=== PATIENT | female | born 1965 | race Caucasian/White ===

== ENCOUNTER 2022-08-30 16:21 | Inpatient (IN) | payer MEDICARE, SELFPAY ==
[2022-08-30] VITALS (24 sets, daily range): BP systolic 82–138; BP diastolic 36–87; PULSE 97–113; RESP 16–28; TEMP 36.9–37.8; O2SAT 59–99; BMI 94.6; BMI 227.1
--- NOTE | 2022-08-30 16:35 | ED_ITS ---
HPI - Skin/Abscess/Foreign Bdy General Chief complaint: Skin/Abscess/Foreign Body Stated complaint: EDEMIA Time Seen by Provider: 08/30/22 16:35 Source: patient Mode of arrival: ambulance History of Present Illness HPI narrative: Patient sent to the emergency department by home health nurse with a complaint of bilateral lymphedema. Has chronic lymphedema and has been treated as an outpatient by primary care doctor with [facility] in the last month. She has an appointment tomorrow with Dr. Danielle. She had fever, chills, feels very weak today. She has nausea and denies any vomiting. She denies any abdominal pain. She states her leg swelling has worsened there is erythema there is a lot of seepage from bilateral lower extremities. Patient also has a history of chronic obstructive pulmonary disease but does not wear oxygen at home. Denies any cough, runny nose, or sore throat. She states she was admitted over a year ago for the lymphedema and cellulitis. Related Data Home Medications Medication Instructions Recorded Confirmed albuterol sulfate 2.5 mg/3 mL 2.5 mg continuous nebulization Q6H 08/30/22 08/30/22 (0.083 %) solution for nebulization PRN shortness of breath or wheezing baclofen 20 mg tablet 20 mg PO DAILY 08/30/22 08/30/22 budesonide 160 mcg-glycopyr 9 2 inh inhalation DAILY 08/30/22 08/30/22 mcg-formot 4.8 mcg/actuation HFA inhaler (Breztri Aerosphere) citalopram 40 mg tablet 40 mg PO DAILY 08/30/22 08/30/22 hydrocodone 5 mg-acetaminophen 325 1 tab PO Q6H PRN pain 08/30/22 08/30/22 mg tablet oxybutynin chloride 5 mg tablet 5 mg PO DAILY 08/30/22 08/30/22 prednisone 5 mg tablet 5 mg PO DAILY 08/30/22 08/30/22 Allergies Allergy/AdvReac Type Severity Reaction Status Date / Time Penicillins Allergy Severe Verified 08/30/22 16:26 Review of Systems ROS Status of ROS 10 or more systems reviewed and unremarkable except as noted in history and below [facility] Medical History (Updated 08/30/22 @ 19:25 by Lizeth Bruce MD) Exam Narrative Exam Narrative: Nurses notes and vital signs reviewed and patient is hypoxic.Oxygen saturations 90 percent on room air 96 percent on 2 L nasal cannula. General: Ill appearing, and in no apparent distress. Skin: See lower extremity Head: Normocephalic, atraumatic. Neck: Supple, non-tender. Eye: Pupils are equal, round and EOMI. No scleral icterus. Ears, Nose, Mouth, and Throat: TM clear, no posterior oropharynx erythema or nasal mucosal hypertrophy, uvula is mid-line Oral mucosa is dry Cardiovascular: tachycardia without murmur, gallop or rub. Respiratory: No accessory muscle use or respiratory distress. Lungs Bilateral diffuse rhonchi distant breath sounds bilaterally. Chest Wall: no tenderness Back: No midline thoracic or lumbar vertebral tenderness. No CVA tenderness Musculoskeletal: Severe bilateral lower extremity lymphedema. There are scaly plaques and diffuse erythema throughout intertriginous area. There is bullae over the gravity dependent areas with serous seepage. Cellulitis is extensive and involved the pannicular folds. GI: pathologic obesity, Abdomen is nontender,non-distended. Normal bowel sounds. No rebound, guarding, or rigidity noted. Neurological: A&O x4. No cranial nerve dysfunction observed. Psychiatric: Cooperative and interactive. Constitutional Vital Signs - 24 hr 08/30/22 16:27 08/30/22 17:15 08/30/22 16:27 Temperature 100.1 F H Pulse Rate Pulse Rate [Monitor] 108 H Respiratory Rate 26 H Blood Pressure 112/54 L Blood Pressure [Right Arm] 112/54 L Pulse Oximetry 94 L 91 L Oxygen Delivery Method Nasal Cannula Nasal Cannula Oxygen Delivery Flow Rate 2.5 2 08/30/22 16:34 08/30/22 17:01 08/30/22 17:31 Temperature Pulse Rate 103 H 107 H Pulse Rate [Monitor] Respiratory Rate 22 19 Blood Pressure 100/36 L 108/82 H 84/62 L Blood Pressure [Right Arm] Pulse Oximetry 94 L 96 Oxygen Delivery Method Oxygen Delivery Flow Rate 08/30/22 17:55 08/30/22 18:00 Temperature Pulse Rate 112 H 107 H Pulse Rate [Monitor] Respiratory Rate 20 25 H Blood Pressure 138/72 H 128/87 H Blood Pressure [Right Arm] Pulse Oximetry 68 L 96 Oxygen Delivery Method Oxygen Delivery Flow Rate Course Vital Signs Vital signs: Vital Signs Temperature 100.1 F H 08/30/22 16:27 Pulse Rate 108 H 08/30/22 16:27 Respiratory Rate 26 H 08/30/22 16:27 Blood Pressure 112/54 L 08/30/22 16:27 Pulse Oximetry 94 L 08/30/22 16:27 Oxygen Delivery Method Nasal Cannula 08/30/22 16:27 Oxygen Delivery Flow Rate 2.5 08/30/22 16:27 Temperature 100.1 F H 08/30/22 16:27 Pulse Rate 107 H 08/30/22 18:00 Respiratory Rate 25 H 08/30/22 18:00 Blood Pressure 128/87 H 08/30/22 18:00 Pulse Oximetry 96 08/30/22 18:00 Oxygen Delivery Method Nasal Cannula 08/30/22 17:15 Oxygen Delivery Flow Rate 2 08/30/22 17:15 MDM - Skin/Abscess/Foreign Bdy MDM Narrative Medical decision making narrative: Patient was placed on oxygen. She was started on 2 L normal saline, vancomycin, and Rocephin. Patient's blood pressure remained stable. She was given Tylenol for fever. All the results were discussed with patient and spouse. Patient will be admitted to Dr. Topete Differential Diagnosis Differential diagnosis: Likely abscess of skin or subcutaneous tissue and cellulitis Medical Records Attestation: I reviewed the patient's medical records. Lab Data Attestation: I reviewed the patient's lab results. Labs: Lab Results 08/30/22 08/30/22 Range/Units 17:00 17:26 WBC 16.3 H (4.0-11.0) 10^3/uL RBC 3.64 L (4.20-5.40) 10^6/uL Hgb 8.9 L (12.0-16.0) g/dL Hct 31.2 L (36.0-48.0) % MCV 85.7 (81.0-99.0) fL MCH 24.5 L (26.7-34.0) pg MCHC 28.5 L (29.9-35.2) g/dL RDW 17.2 H (11.0-15.0) % Plt Count 285 (150-450) 10^3/uL MPV 10.7 (9.5-13.5) fL Seg Neuts % (Manual) 89.0 Band Neutrophils % 5.0 (0-5) % Lymphocytes % (Manual) 3.0 L (20.5-60.0) % Monocytes % (Manual) 3.0 (1.7-12.0) % Eosinophils % (Manual) 0.0 L (0.9-7.0) % Basophils % (Manual) 0.0 L (0.2-2.0) % Neutrophils # (Manual) 14.50 H (1.4-6.5) 10^3/uL Band Neutrophils # 0.8 H (0.0-0.3) 10^3/uL Lymphocytes # (Manual) 0.48 L (1.20-3.80) 10^3/uL Monocytes # (Manual) 0.48 (0.30-0.80) 10^3/uL Eosinophils # (Manual) 0.00 (0.00-0.70) 10^3/uL Basophils # (Manual) 0.00 (0.00-0.10) 10^3/uL Hypochromasia 1+ Anisocytosis 1+ Sodium 141 (136-145) mmol/L Potassium 3.9 (3.5-5.1) mmol/L Chloride 102 (98-107) mmol/L Carbon Dioxide 34.2 H (21.0-32.0) mmol/L Anion Gap 8.7 BUN 18.0 (7.0-18.0) mg/dL Creatinine 0.78 (0.55-1.02) mg/dL Est GFR ( Amer) >60 (>=60) Est GFR (Non-Af Amer) >60 (>=60) BUN/Creatinine Ratio 23.1 Glucose 120 H (74-106) mg/dL Lactate 2.7 H* (0.4-2.0) mmol/L Calcium 8.8 (8.5-10.1) mg/dL Magnesium 2.0 (1.8-2.4) mg/dL Total Bilirubin 0.4 (0.2-1.0) mg/dL AST 31 (15-37) U/L ALT 28 (14-59) U/L Alkaline Phosphatase 118 H (46-116) U/L Total Protein 7.0 (6.4-8.2) g/dL Albumin 3.2 L (3.4-5.0) g/dL Globulin 3.8 g/dL Albumin/Globulin Ratio 0.8 Urine Color Lt. yellow (YELLOW) Urine Clarity Clear (CLEAR) Urine pH 6.0 (5.0-9.0) Ur Specific [place] 1.020 (1.005-1.025) Urine Protein Negative (NEG/TRACE) mg/dL Urine Glucose (UA) Negative (NEGATIVE) mg/dL Urine Ketones Trace A (NEGATIVE) mg/dL Urine Occult Blood Negative (NEGATIVE) Urine Nitrite Positive A (NEGATIVE) Urine Bilirubin Negative (NEGATIVE) Urine Urobilinogen 0.2 (0.2-1.0) EU/dL Ur Leukocyte Esterase Negative (NEGATIVE) ECG Data Attestation: I personally reviewed and interpreted this ECG as follows: Critical Care Time Critical Care Time Attestation: Critical Care Time: 35 minutes, critical care time is separate from any procedures that are performed. The following was considered in the determination of critical care but not limited to the level medical decision-making, intensive cardiac and/or respiratory monitor, frequent vital sign monitoring, evaluation of laboratory studies, evaluation of a radiographic studies, oxygen monitoring and constant monitoring. Discharge Plan Discharge Chief Complaint: Skin/Abscess/Foreign Body Clinical Impression: UTI (urinary tract infection), Lymphedema associated with obesity, Sepsis Patient Disposition: Admitted As Inpatient Time of Disposition Decision: 19:25 Condition: Good Prescriptions / Home Meds: No Action albuterol sulfate 2.5 mg /3 mL (0.083 %) solution for nebulization 2.5 mg continuous nebulization Q6H PRN (Reason: shortness of breath or wheezing) baclofen 20 mg tablet 20 mg PO DAILY Breztri Aerosphere 160-9-4.8 mcg/actuation HFA aerosol inhaler 2 inh INHALATION DAILY citalopram 40 mg tablet 40 mg PO DAILY hydrocodone-acetaminophen 5-325 mg tablet 1 tab PO Q6H PRN (Reason: pain) oxybutynin chloride 5 mg tablet 5 mg PO DAILY prednisone 5 mg tablet 5 mg PO DAILY Referrals: VEGA DANIELLE [Primary Care Provider] - 1 week
--- NOTE | 2022-08-30 16:37 | ECG_ITS ---
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
[2022-08-30] MEDS: 0.9 % SODIUM CHLORIDE 1,000 ML 100 ML IV (17:08)
[2022-08-30 17:12] LABS: Hematocrit 31.2 % (36.0-48.0); Hemoglobin 8.9 g/dL (12.0-16.0); Mean Corpuscular HGB Conc 28.5 g/dL (29.9-35.2); Mean Corpuscular Hemoglobin 24.5 pg (26.7-34.0); Mean Corpuscular Volume 85.7 fL (81.0-99.0); Mean Platelet Volume 10.7 fL (9.5-13.5); Platelet Count 285 10^3/uL (150-450); Red Blood Count 3.64 10^6/uL (4.20-5.40); Red Cell Distribution Width 17.2 % (11.0-15.0); White Blood Count 16.3 10^3/uL (4.0-11.0)
[2022-08-30 17:24] LABS: Alanine Aminotransferase 28 U/L (14-59); Albumin Globulin Ratio 0.8; Albumin Level 3.2 g/dL (3.4-5.0); Alkaline Phosphatase 118 U/L (46-116); Anion Gap 8.7; Aspartate Amino Transferase 31 U/L (15-37); BUN Creatinine Ratio 23.1; Bilirubin Total 0.4 mg/dL (0.2-1.0); Calcium 8.8 mg/dL (8.5-10.1); Carbon Dioxide 34.2 mmol/L (21.0-32.0); Chloride 102 mmol/L (98-107); Estimated GFR (African America >60 (>=60); Estimated GFR (Non-African Ame >60 (>=60); Globulin 3.8 g/dL; Glucose 120 mg/dL (74-106); Potassium 3.9 mmol/L (3.5-5.1); Sodium 141 mmol/L (136-145)
[2022-08-30 17:31] LABS: Band Neutrophils Absolute 0.8 10^3/uL (0.0-0.3); Lymphocytes Absolute Manual 0.48 10^3/uL (1.20-3.80); Monocytes Absolute Manual 0.48 10^3/uL (0.30-0.80)
[2022-08-30 17:32] LABS: Anisocytosis 1+; Hypochromasia 1+
[2022-08-30 17:40] LABS: Lactate/Lactic Acid 2.7 mmol/L (0.4-2.0)
[2022-08-30 17:49] LABS: Bilirubin Urine NEGATIVE (NEGATIVE); Blood Urine NEGATIVE (NEGATIVE); Clarity Urine CLEAR (CLEAR); Color Urine LT. YELLOW (YELLOW); Glucose Urine UA NEGATIVE (NEGATIVE); Ketones Urine TRACE mg/dL (NEGATIVE); Leukocyte Esterase Urine NEGATIVE (NEGATIVE); Nitrite Urine POSITIVE (NEGATIVE); Protein Urine NEGATIVE (NEG/TRACE); Urobilinogen Urine 0.2 EU/dL (0.2-1.0)
[2022-08-30] MEDS: ACETAMINOPHEN 500 MG TABLET 1000 MG PO (17:55)
[2022-08-30] MEDS: ONDANSETRON PF 4 MG/2 ML VIAL IV (17:56)
--- NOTE | 2022-08-30 18:35 | XR_ITS ---
The [place] [id number] Patient Name: HUBERT JONES MRN: [id number] date: 1965 Sex: F Assigned Patient Location: ER Current Patient Location: ED.MAIN Accession/Order Number: [id number] Exam Date: 08/30/2022 18:30 Report Date: 08/30/2022 19:33 At the request of: JUAN SANDERS Procedure: XR chest 1V EXAMINATION: XR chest 1V, , 08/30/2022 6:30 PM EDT INDICATION: sepsis HISTORY: Ordering Provider Reason for Exam: sepsis Technologist Note: Additional: COMPARISON: None. TECHNIQUE: Chest x-ray: One view. FINDINGS: No pneumothorax, pleural effusion or focal airspace consolidation. Mild prominence of bronchovascular markings is seen, which may represent mild pulmonary vascular congestion. Please correlate clinically. Heart is normal in size. Bony thorax is unremarkable. IMPRESSION: Mild prominence of bronchovascular markings is seen, which may represent mild pulmonary vascular congestion. Please correlate clinically. Electronically authenticated by: BERTA BOJORQUEZ Date: 08/30/2022 19:33
[2022-08-30] MEDS: VANCOMYCIN HCL 2,000 MG in 0.9 % SODIUM CHLORIDE 500 ML 250 MG IV (18:59)
--- NOTE | 2022-08-30 19:35 | PC.NURSE ---
PATIENT STATING HER TAILBONE AND HEAD ARE HURTING. REQUESTED SOMETHING FOR PAIN. pHYSICIAN NOTIFIED. PATIENT STATED SHE TAKES VICODIN AT HOME.
[2022-08-30 20:56] LABS: Lactate/Lactic Acid 1.3 mmol/L (0.4-2.0)
[2022-08-30] MEDS: CEFTRIAXONE 2,000 MG in 0.9 % SODIUM CHLORIDE 100 ML 200 MG IV (21:19)
[2022-08-30] MEDS: 0.9 % SODIUM CHLORIDE 1,000 ML 1000 ML IV (21:34)
[2022-08-31] VITALS (53 sets, daily range): BP systolic 89–144; BP diastolic 45–116; PULSE 77–121; RESP 12–37; TEMP 37.2–37.9; O2SAT 67–97; BMI 91.7
--- NOTE | 2022-08-31 00:07 | RESP.RT ---
patient placed on 55% Venti mask due to patient mouth breathing
--- NOTE | 2022-08-31 02:10 | PC.NURSE ---
Patient with intermittent sleep apnea while on venti mask at 55% due to mouth breathing.
--- NOTE | 2022-08-31 02:17 | PC.NURSE ---
Patient resting with mouth open and mouth breathing while wearing her oxygen at home flow rate of 2 LNC.
--- NOTE | 2022-08-31 02:27 | PC.NURSE ---
Patient continues with frequent sleep apnea. SPO2 varies frequently. Patient with Venti mask on at 55% due to open mouth breathing. Pulse ox probe on ear with variances noted. Finger probe with difficulty reading due to artificial nails and vietnamese.
--- NOTE | 2022-08-31 03:16 | P.PN_ITS ---
Progress Note: Subjective Subjective Interval history: CC: seeping wounds, fevers, chills HPI: 56 year old female with obesity, chronic lymphedema and recurrent cellulitis last episode one month ago treated with Bactrim who presents with complaints of fevers, chills rigors x 1 day. reports seeping from leg wounds. denies confusion, cough, abdominal pain. ER, febrile hypotensive resolved with fluid bolus,, labs with wbc 16, lactate 2.7, UA + nitrite. blood cultures obtained, horner placed, IV vancomycin and rocephin given. ROS: negaitve except for HPI PMHx: Super obesity, COPD on home 02, Lymphedema, chronic pain PSHx none: SHx: lives with , denies alcohol, tobacco use Allergies:NKDA Home medications: reviewed in chart Exam Narrative Exam Narrative: GEN: lying in bed in no distress, very obese appearing HEENT: NC/AT, large neck CVS: RRR, edema Lungs: normal respiratory effort, bilateral air entry GI: obese, Non tender, horner in place Skin: multiple seeping wounds both legs Neuro: moves all extremities Constitutional Vital Signs - 24 hr 08/30/22 16:27 08/30/22 17:15 08/30/22 16:27 Temperature 100.1 F H Pulse Rate Pulse Rate [Monitor] 108 H Respiratory Rate 26 H Blood Pressure 112/54 L Blood Pressure [Right Arm] 112/54 L Pulse Oximetry 94 L 91 L Oxygen Delivery Method Nasal Cannula Nasal Cannula Oxygen Delivery Flow Rate 2.5 2 Fraction of Inspired Oxygen 08/30/22 16:34 08/30/22 17:01 08/30/22 17:31 Temperature Pulse Rate 103 H 107 H Pulse Rate [Monitor] Respiratory Rate 22 19 Blood Pressure 100/36 L 108/82 H 84/62 L Blood Pressure [Right Arm] Pulse Oximetry 94 L 96 Oxygen Delivery Method Oxygen Delivery Flow Rate Fraction of Inspired Oxygen 08/30/22 17:55 08/30/22 18:00 08/30/22 22:11 Temperature 98.5 F Pulse Rate 112 H 107 H 99 H Pulse Rate [Monitor] Respiratory Rate 20 25 H 20 Blood Pressure 138/72 H 128/87 H Blood Pressure [Right Arm] 112/54 L Pulse Oximetry 68 L 96 91 L Oxygen Delivery Method Nasal Cannula Oxygen Delivery Flow Rate 2 Fraction of Inspired Oxygen 08/30/22 22:11 08/30/22 18:00 08/30/22 18:30 Temperature Pulse Rate 109 H 109 H Pulse Rate [Monitor] 99 H Respiratory Rate 20 19 27 H Blood Pressure 128/87 H 92/68 Blood Pressure [Right Arm] Pulse Oximetry 91 L 99 96 Oxygen Delivery Method Nasal Cannula Oxygen Delivery Flow Rate 2 Fraction of Inspired Oxygen 08/30/22 19:00 08/30/22 19:30 08/30/22 20:00 Temperature Pulse Rate 110 H 109 H 108 H Pulse Rate [Monitor] Respiratory Rate 20 19 16 Blood Pressure 112/59 L 94/45 L 113/47 L Blood Pressure [Right Arm] Pulse Oximetry 93 L 93 L 92 L Oxygen Delivery Method Oxygen Delivery Flow Rate Fraction of Inspired Oxygen 08/30/22 20:30 08/30/22 21:00 08/30/22 21:30 Temperature Pulse Rate 113 H 109 H Pulse Rate [Monitor] Respiratory Rate 28 H 21 Blood Pressure 91/44 L 100/48 L 82/63 L Blood Pressure [Right Arm] Pulse Oximetry 88 L 90 L Oxygen Delivery Method Oxygen Delivery Flow Rate Fraction of Inspired Oxygen 08/30/22 21:50 08/30/22 21:59 08/30/22 21:59 Temperature Pulse Rate 102 H 108 H Pulse Rate [Monitor] Respiratory Rate 19 18 Blood Pressure 91/56 L 83/50 L Blood Pressure [Right Arm] Pulse Oximetry 91 L Oxygen Delivery Method Oxygen Delivery Flow Rate Fraction of Inspired Oxygen 08/30/22 22:17 08/30/22 23:45 08/31/22 00:02 Temperature Pulse Rate 99 H Pulse Rate [Monitor] Respiratory Rate 18 Blood Pressure 112/54 L Blood Pressure [Right Arm] Pulse Oximetry 88 L 78 L 89 L Oxygen Delivery Method Nasal Cannula Venturi Mask Oxygen Delivery Flow Rate 2 14 Fraction of Inspired Oxygen 55 08/30/22 21:59 08/30/22 22:17 08/30/22 22:30 Temperature Pulse Rate 108 H 101 H 100 H Pulse Rate [Monitor] Respiratory Rate 22 22 20 Blood Pressure Blood Pressure [Right Arm] 83/50 L 112/54 L 108/49 L Pulse Oximetry 88 L 90 L 87 L Oxygen Delivery Method Nasal Cannula Nasal Cannula Nasal Cannula Oxygen Delivery Flow Rate 2 2 2 Fraction of Inspired Oxygen 08/30/22 22:45 08/30/22 23:00 08/30/22 23:15 Temperature Pulse Rate 97 H 98 H 103 H Pulse Rate [Monitor] Respiratory Rate 16 20 Blood Pressure Blood Pressure [Right Arm] 104/57 L 99/46 L 120/76 H Pulse Oximetry 85 L 88 L 86 L Oxygen Delivery Method Nasal Cannula Nasal Cannula Nasal Cannula Oxygen Delivery Flow Rate 2 2 2 Fraction of Inspired Oxygen 08/30/22 23:30 08/31/22 00:00 08/31/22 00:30 Temperature Pulse Rate 98 H 103 H 107 H Pulse Rate [Monitor] Respiratory Rate 18 18 18 Blood Pressure Blood Pressure [Right Arm] 114/63 116/65 144/80 H Pulse Oximetry 84 L 86 L 88 L Oxygen Delivery Method Nasal Cannula Venturi Mask Venturi Mask Oxygen Delivery Flow Rate 2 Fraction of Inspired Oxygen 55 55 08/31/22 01:00 08/31/22 02:00 08/30/22 22:17 Temperature Pulse Rate 110 H 114 H 100 H Pulse Rate [Monitor] Respiratory Rate 18 18 21 Blood Pressure 112/54 L Blood Pressure [Right Arm] 112/84 H 102/71 Pulse Oximetry 83 L 88 L 90 L Oxygen Delivery Method Venturi Mask Venturi Mask Oxygen Delivery Flow Rate 2 Fraction of Inspired Oxygen 55 55 08/30/22 22:30 08/30/22 22:45 08/30/22 23:00 Temperature Pulse Rate 101 H 102 H 101 H Pulse Rate [Monitor] Respiratory Rate 18 18 25 H Blood Pressure 108/49 L 104/57 L 99/46 L Blood Pressure [Right Arm] Pulse Oximetry 87 L 87 L 83 L Oxygen Delivery Method Oxygen Delivery Flow Rate Fraction of Inspired Oxygen 08/30/22 23:15 08/30/22 23:30 08/30/22 23:45 Temperature Pulse Rate 101 H 101 H 100 H Pulse Rate [Monitor] Respiratory Rate 19 20 19 Blood Pressure 120/76 H 114/63 117/73 Blood Pressure [Right Arm] Pulse Oximetry 89 L 59 L 86 L Oxygen Delivery Method Oxygen Delivery Flow Rate Fraction of Inspired Oxygen 08/31/22 00:00 08/31/22 00:15 08/31/22 00:30 Temperature Pulse Rate 106 H 107 H 107 H Pulse Rate [Monitor] Respiratory Rate 23 20 25 H Blood Pressure 116/65 122/79 H 144/116 H Blood Pressure [Right Arm] Pulse Oximetry 85 L 81 L 84 L Oxygen Delivery Method Oxygen Delivery Flow Rate Fraction of Inspired Oxygen 08/31/22 01:00 08/31/22 02:00 08/31/22 02:00 Temperature Pulse Rate 117 H 116 H 120 H Pulse Rate [Monitor] Respiratory Rate 37 H 37 H 37 H Blood Pressure 112/84 H 102/71 102/71 Blood Pressure [Right Arm] Pulse Oximetry 67 L 81 L 74 L Oxygen Delivery Method Venturi Mask Oxygen Delivery Flow Rate 55 Fraction of Inspired Oxygen 55 Progress Note: Objective Labs Labs: Short CBC 08/30/22 Range/Units 17:00 WBC 16.3 H (4.0-11.0) 10^3/uL Hgb 8.9 L (12.0-16.0) g/dL Hct 31.2 L (36.0-48.0) % Plt Count 285 (150-450) 10^3/uL BMP 08/30/22 17:00 Sodium 141 Potassium 3.9 Chloride 102 Carbon Dioxide 34.2 H BUN 18.0 Creatinine 0.78 Glucose 120 H Calcium 8.8 Liver Function 08/30/22 Range/Units 17:00 Total Bilirubin 0.4 (0.2-1.0) mg/dL AST 31 (15-37) U/L ALT 28 (14-59) U/L Alkaline Phosphatase 118 H (46-116) U/L Albumin 3.2 L (3.4-5.0) g/dL Urine 08/30/22 Range/Units 17:26 Urine Color Lt. yellow (YELLOW) Urine Clarity Clear (CLEAR) Urine pH 6.0 (5.0-9.0) Ur Specific [place] 1.020 (1.005-1.025) Urine Protein Negative (NEG/TRACE) mg/dL Urine Glucose (UA) Negative (NEGATIVE) mg/dL Progress Note: A&P Assessment and Plan (1) UTI (urinary tract infection): Assessment and Plan: Possible UTI. Start Rocephin, check urine cultures (2) Lymphedema associated with obesity: Assessment and Plan: lymphedema wraps, wound care. encourage weight loss. consider Weight loss injections (3) Sepsis: Assessment and Plan: secondary to infected wounds and cellulitis. - check blood and wound cultures - Vancomycin pharmacy to dose, + Rocephin - maintain normotension, monitor lactate levels - patient on daily low dose prednisone, if becomes hypotensive will give stress does solucortef (4) On home O2: Assessment and Plan: continue 2L home 02 suspect underlying sleep apnea, outpatient sleep study (5) Obesity: (6) Lymphedema: (7) Edema: Assessment and Plan: venous duplex legs (8) COPD (chronic obstructive pulmonary disease): Assessment and Plan: not in exacerbation, continue home inhalers. Plan telemedicine clause: DVT ppx- Lovenox, Medications review: home medication selectively ordered goals of care- [employer]: discussed with ER physician, bedside nurse and updated patient of plan of care, all questions answered to their satisfaction. disposition- home when medically stable As the provider of this telehealth evaluation, requested by the patient's evaluating physician, I attest that I introduced myself to the patient, provided my credentials and determined that telemedicine via a real time 2 way interactive audio and video platform is an appropriate and effective means of providing this service. I reviewed the patient;s chart and had a discussion with the member of the patient's treatment team. the patient and I mutually agreed with continuation of this evaluation via telemedicine. the patient consented for the telemedicine evaluation. this virtual encounter was taken place from [place] and lasted for about 30 minutes. the nurse was present during the entire time of the encounter and was able to move the stethoscope in appropriate directions. the patient was evaluated at 08/30/2022 @ 2320 Telemedicine Attestation Telemedicine Attestation I conducted this encounter from [[place]] via secure live, [id number] video conference with the patient, CHARGE TEST-CHARGES located at [facility]. Prior to the interview, the risks and benefits of telemedicine were discussed with the patient and verbal consent was obtained.
[2022-08-31 05:02] LABS: Basophils Percent Auto 0.2 % (0.2-2.0); Hematocrit 30.3 % (36.0-48.0); Hemoglobin 8.4 g/dL (12.0-16.0); Immature Granulocytes Abs Auto 0.15 10^3/uL (0.00-0.03); Immature Granulocytes Pct Auto 0.6 % (0.0-0.5); Lymphocytes Absolute Auto 0.3 10^3/uL (1.2-3.8); Lymphocytes Percent Auto 1.2 % (20.5-60.0); Mean Corpuscular HGB Conc 27.7 g/dL (29.9-35.2); Mean Corpuscular Hemoglobin 24.6 pg (26.7-34.0); Mean Corpuscular Volume 88.9 fL (81.0-99.0); Mean Platelet Volume 10.8 fL (9.5-13.5); Monocytes Absolute Auto 0.6 10^3/uL (0.3-0.8); Monocytes Percent Auto 2.6 % (1.7-12.0); Neutrophils Absolute Auto 22.7 10^3/uL (1.4-6.5); Neutrophils Percent Auto 95.4 % (43.0-75.0); Platelet Count 287 10^3/uL (150-450); Red Blood Count 3.41 10^6/uL (4.20-5.40); Red Cell Distribution Width 17.3 % (11.0-15.0); White Blood Count 23.8 10^3/uL (4.0-11.0)
[2022-08-31 05:12] LABS: Estimated Average Glucose 117 mg/dL; Glycohemoglobin A1C 5.7 % (4.5-6.2)
[2022-08-31 05:16] LABS: Lactate/Lactic Acid 0.8 mmol/L (0.4-2.0)
[2022-08-31 05:18] LABS: Alanine Aminotransferase 26 U/L (14-59); Albumin Globulin Ratio 0.7; Alkaline Phosphatase 106 U/L (46-116); Anion Gap 5.3; Aspartate Amino Transferase 24 U/L (15-37); BUN Creatinine Ratio 18.7; Bilirubin Total 0.6 mg/dL (0.2-1.0); Calcium 8.4 mg/dL (8.5-10.1); Carbon Dioxide 35.9 mmol/L (21.0-32.0); Chloride 103 mmol/L (98-107); Estimated GFR (African America >60 (>=60); Estimated GFR (Non-African Ame >60 (>=60); Globulin 4.1 g/dL; Glucose 162 mg/dL (74-106); Potassium 4.2 mmol/L (3.5-5.1); Sodium 140 mmol/L (136-145); Total Protein 7.1 g/dL (6.4-8.2)
[2022-08-31 05:24] LABS: C Reactive Protein 11.7 mg/dL (<=1.0)
[2022-08-31 05:28] LABS: Iron <5.0 ug/dL (50.0-170.0)
[2022-08-31 05:41] LABS: Percent Iron Saturation 1.1 %
[2022-08-31] MEDS: ENOXAPARIN SODIUM 60 MG/0.6 ML SYRINGE SUBQ ×2 (08:13→20:16)
[2022-08-31] MEDS: ACETAMINOPHEN 500 MG TABLET 1000 MG PO ×2 (08:15→20:16)
[2022-08-31 08:28] LABS: A. calcoaceticus-baumannii Cpx NOT DETECTED (NOT DETECTE); Bacteroides fragilis NOT DETECTED (NOT DETECTE); CTX-M NOT DETECTED (NOT DETECTE); Candida albicans NOT DETECTED (NOT DETECTE); Candida auris NOT DETECTED (NOT DETECTE); Candida glabrata NOT DETECTED (NOT DETECTE); Candida krusei NOT DETECTED (NOT DETECTE); Candida parapsilosis NOT DETECTED (NOT DETECTE); Candida tropicalis NOT DETECTED (NOT DETECTE); Cryptococcus neoformans/gattii NOT DETECTED (NOT DETECTE); Enterobacter cloacae complex NOT DETECTED (NOT DETECTE); Enterobacterales NOT DETECTED (NOT DETECTE); Enterococcus faecalis NOT DETECTED (NOT DETECTE); Enterococcus faecium NOT DETECTED (NOT DETECTE); Haemophilus influenzae NOT DETECTED (NOT DETECTE); IMP NOT DETECTED (NOT DETECTE); KPC NOT DETECTED (NOT DETECTE); Klebsiella aerogenes NOT DETECTED (NOT DETECTE); Klebsiella pneumoniae group NOT DETECTED (NOT DETECTE); Listeria monocytogenes NOT DETECTED (NOT DETECTE); NDM NOT DETECTED (NOT DETECTE); Neisseria meningitidis NOT DETECTED (NOT DETECTE); OXA-48-like NOT DETECTED (NOT DETECTE); Proteus spp. NOT DETECTED (NOT DETECTE); Pseudomonas aeruginosa NOT DETECTED (NOT DETECTE); Salmonella spp. NOT DETECTED (NOT DETECTE); Serratia marcescens NOT DETECTED (NOT DETECTE); Staphylococcus epidermidis NOT DETECTED (NOT DETECTE); Staphylococcus lugdunensis NOT DETECTED (NOT DETECTE); Staphylococcus spp. NOT DETECTED (NOT DETECTE); Stenotrophomonas maltophilia NOT DETECTED (NOT DETECTE); Streptococcus pneumoniae NOT DETECTED (NOT DETECTE); Streptococcus pyogenes NOT DETECTED (NOT DETECTE); VIM NOT DETECTED (NOT DETECTE); mcr-1 NOT DETECTED (NOT DETECTE); mecA/C NOT DETECTED (NOT DETECTE); mecA/C and MREJ (MRSA) NOT DETECTED (NOT DETECTE); vanA/B NOT DETECTED (NOT DETECTE)
[2022-08-31] MEDS: VANCOMYCIN HCL 2,000 MG in 0.9 % SODIUM CHLORIDE 500 ML 250 MG IV (08:28)
[2022-08-31 08:32] LABS: Streptococcus agalactiae DETECTED (NOT DETECTE); Streptococcus spp. DETECTED (NOT DETECTE)
--- NOTE | 2022-08-31 10:33 | RESP.RT ---
SpO2 81% on 55% VM due to obstructive sleep apnea. SpO2 immediately perla to 96% after placing on BiPAP 18/5, RR 14, 50%
[2022-08-31] MEDS: OXYBUTYNIN chloride 5 MG TABLET PO (10:43)
[2022-08-31] MEDS: CITALOPRAM HYDROBROMIDE 20 MG TABLET 40 MG PO (10:43)
[2022-08-31] MEDS: PREDNISONE 5 MG TABLET PO (10:43)
[2022-08-31] MEDS: LINEZOLID IN DEXTROSE 5% 600 MG/300 ML PIGGYBACK 300 MG IV (10:43)
[2022-08-31] MEDS: BACLOFEN 10 MG TABLET 20 MG PO (10:43)
[2022-08-31 10:55] LABS: Glucometer 139 mg/dL (74-106)
--- NOTE | 2022-08-31 11:06 | CA_ITS ---
Patient Name Site Name HUBERT JONES [facility] Account No Medical Record Number Age Sex Date Time [id number] [facility]:[id number] F 08/31/2022 12:03 At the Request Of Shaikh Amna ECHOCARDIOGRAM REPORT PROCEDURE: CA ECHO DOPPLER COMPLETE INDICATIONS: sob, chf, elevated BNP COMPARISON: None. DESCRIPTION: COMPLETE ECHOCARDIOGRAM Real-time transthoracic echocardiography with 2D, M-mode, spectral and color flow Doppler performed. QUALITY: Technically difficult due to patient's condition. 64 533# No apical or subcostal images. LEFT VENTRICLE: Normal chamber size. Mild concentric left ventricular hypertrophy. LV EF: Visual estimation of left ventricular ejection fraction is 50-55% DIASTOLIC: ATRIAL SEPTUM: LEFT ATRIUM: Normal chamber size. RIGHT ATRIUM: RIGHT VENTRICLE: Normal chamber size. Normal systolic function. TRICUSPID VALVE: Not well visualized. MITRAL VALVE: Normal mobility and thickness. There is no mitral annular calcification. AORTIC VALVE: Normal trileaflet appearance. No visible sclerosis. Normal leaflet mobility. AORTIC ROOT: PULMONIC VALVE: Not well visualized. PERICARDIUM: No evidence of pericardial effusion. IVC: Not well visualized. PLEURA: CONCLUSION: 1. Left ventricular systolic function is at the lower limits of normal. LVEF is estimated at 50 to 55%. 2. Normal right ventricular systolic function. 3. The aortic valve appears to open well. 4. No pericardial effusion. 5. Technically limited study due to poor sound transmission. This precluded full assessment of valvular function. Adult Echocardiography Procedure Report Left Ventricle LVEDD (3.7 - 5.6 cm): 5.40 cm LVESD (2.2 - 4.0 cm): 4.32 cm LVIVS thickness (0.6 - 1.2 cm): 1.09 cm LVPW thickness (0.5 - 1.0 cm): 1.08 cm LVOT Diameter 2.41 cm Left Atrium Left Atrium Systolic Dimension: 3.84 cm Mitral Valve Right Ventricle Aorta AO Root Diam: 3.21 cm Aortic Valve Tricuspid Valve Pulmonic Valve Peak Velocity: 0.99 m/s Peak Gradient: 3.81 mm[Hg], 4.10 mm[Hg] Right Atrium Dictated by: Barry Harvey M.D. on 09/01/2022 at 18:15 Approved by: Barry Harvey M.D. on 09/01/2022 at 18:18
[2022-08-31] MEDS: LACTATED RINGER'S SOLUTION 1,000 ML 125 ML IV ×2 (11:26→20:15)
[2022-08-31] MEDS: CEFTRIAXONE 2,000 MG in 0.9 % SODIUM CHLORIDE 100 ML 200 MG IV (11:28)
--- NOTE | 2022-08-31 11:58 | CM.NOTE ---
Rounds made with Dr. Woo. Currently has home oxygen @ 2L/NC and CPap. Has a hospital bed and bedside commode at home also. Current with Home Health. Consult for Wound. No discharge today.
[2022-08-31] MEDS: HYDROCODONE/ACETAMINOPHEN 5-325 MG TABLET 1 TAB PO (12:39)
--- NOTE | 2022-08-31 12:59 | P.GSCN_ITS ---
History of Present Illness Consult details Narrative: Patient is a 56-year-old female who is seen today in consultation for reported cellulitis of both lower extremities. Patient is a morbidly obese female who is admitted with sepsis. Upon evaluation she was noted to have markedly lymphedema with areas of erythema of both thighs as well as lower legs. Reportedly she has areas were her tissue is essentially weeping fluid. Surgical/wound consultation was therefore requested. Review of Systems ROS Status of ROS unobtainable due to medical condition [facility] Medical History (Updated 08/30/22 @ 19:25 by Lizeth Bruce MD) Social History (Updated 08/30/22 @ 23:44 by José Miguel Saxena) Within the past year, how often did you have a drink containing alcohol: never Score interpretation: A score less than 3 is consistent with normal alcohol consumption. Smoking status: Never smoker Second hand tobacco smoke exposure: No Non-prescribed substance use: denies use Known occupational exposures/hazards: No Are you now , , , , never or living with a partner: In a typical week, how many times do you talk on the telephone with family, friends, or neighbors: 3 or more times per week How often do you get together with friends or relatives: 3 or more times per week How often do you attend buddhism or scientology services: never Do you belong to any clubs or organizations such as buddhism groups unions, fraternal or athletic groups, or school groups: no Total score: 2 Score interpretation: A score of greater than or equal to 2 indicates the lowest level of social isolation. Little interest or pleasure in doing things: not at all Feeling down, depressed, or hopeless: several days Feel stressed/tense/nervous/anxious/difficulty sleeping: to some extent Due to disability, difficulty making decisions: No Gender Identity: female Meds Home Medications and Allergies Home Medications Medication Instructions Recorded Confirmed Type albuterol sulfate 2.5 mg/3 mL 2.5 mg continuous nebulization Q6H 08/30/22 08/30/22 History (0.083 %) solution for nebulization PRN shortness of breath or wheezing baclofen 20 mg tablet 20 mg PO DAILY 08/30/22 08/30/22 History budesonide 160 mcg-glycopyr 9 2 inh inhalation DAILY 08/30/22 08/30/22 History mcg-formot 4.8 mcg/actuation HFA inhaler ([employer]) citalopram 40 mg tablet 40 mg PO DAILY 08/30/22 08/30/22 History hydrocodone 5 mg-acetaminophen 325 1 tab PO Q6H PRN pain 08/30/22 08/30/22 History mg tablet oxybutynin chloride 5 mg tablet 5 mg PO DAILY 08/30/22 08/30/22 History prednisone 5 mg tablet 5 mg PO DAILY 08/30/22 08/30/22 History Allergies Allergy/AdvReac Type Severity Reaction Status Date / Time Penicillins Allergy Severe Verified 08/30/22 16:26 Exam Narrative Exam Narrative: Patient is seen in ICU. Via CPAP. On examination of her lower extremities again there is marked lymphedema with chronic skin and soft tissue changes. The left medial thigh there is an area which is open although it is quite superficial and appears clean. Constitutional Vital Signs - 24 hr 08/30/22 16:27 08/30/22 17:15 08/30/22 16:27 Temperature 100.1 F H Pulse Rate Pulse Rate [Monitor] 108 H Respiratory Rate 26 H Blood Pressure 112/54 L Blood Pressure [Left Arm] Blood Pressure [Right Arm] 112/54 L Pulse Oximetry 94 L 91 L Oxygen Delivery Method Nasal Cannula Nasal Cannula Oxygen Delivery Flow Rate 2.5 2 Fraction of Inspired Oxygen 08/30/22 16:34 08/30/22 17:01 08/30/22 17:31 Temperature Pulse Rate 103 H 107 H Pulse Rate [Monitor] Respiratory Rate 22 19 Blood Pressure 100/36 L 108/82 H 84/62 L Blood Pressure [Left Arm] Blood Pressure [Right Arm] Pulse Oximetry 94 L 96 Oxygen Delivery Method Oxygen Delivery Flow Rate Fraction of Inspired Oxygen 08/30/22 17:55 08/30/22 18:00 08/30/22 22:11 Temperature 98.5 F Pulse Rate 112 H 107 H 99 H Pulse Rate [Monitor] Respiratory Rate 20 25 H 20 Blood Pressure 138/72 H 128/87 H Blood Pressure [Left Arm] Blood Pressure [Right Arm] 112/54 L Pulse Oximetry 68 L 96 91 L Oxygen Delivery Method Nasal Cannula Oxygen Delivery Flow Rate 2 Fraction of Inspired Oxygen 08/30/22 22:11 08/30/22 18:00 08/30/22 18:30 Temperature Pulse Rate 109 H 109 H Pulse Rate [Monitor] 99 H Respiratory Rate 20 19 27 H Blood Pressure 128/87 H 92/68 Blood Pressure [Left Arm] Blood Pressure [Right Arm] Pulse Oximetry 91 L 99 96 Oxygen Delivery Method Nasal Cannula Oxygen Delivery Flow Rate 2 Fraction of Inspired Oxygen 08/30/22 19:00 08/30/22 19:30 08/30/22 20:00 Temperature Pulse Rate 110 H 109 H 108 H Pulse Rate [Monitor] Respiratory Rate 20 19 16 Blood Pressure 112/59 L 94/45 L 113/47 L Blood Pressure [Left Arm] Blood Pressure [Right Arm] Pulse Oximetry 93 L 93 L 92 L Oxygen Delivery Method Oxygen Delivery Flow Rate Fraction of Inspired Oxygen 08/30/22 20:30 08/30/22 21:00 08/30/22 21:30 Temperature Pulse Rate 113 H 109 H Pulse Rate [Monitor] Respiratory Rate 28 H 21 Blood Pressure 91/44 L 100/48 L 82/63 L Blood Pressure [Left Arm] Blood Pressure [Right Arm] Pulse Oximetry 88 L 90 L Oxygen Delivery Method Oxygen Delivery Flow Rate Fraction of Inspired Oxygen 08/30/22 21:50 08/30/22 21:59 08/30/22 21:59 Temperature Pulse Rate 102 H 108 H Pulse Rate [Monitor] Respiratory Rate 19 18 Blood Pressure 91/56 L 83/50 L Blood Pressure [Left Arm] Blood Pressure [Right Arm] Pulse Oximetry 91 L Oxygen Delivery Method Oxygen Delivery Flow Rate Fraction of Inspired Oxygen 08/30/22 22:17 08/30/22 23:45 08/31/22 00:02 Temperature Pulse Rate 99 H Pulse Rate [Monitor] Respiratory Rate 18 Blood Pressure 112/54 L Blood Pressure [Left Arm] Blood Pressure [Right Arm] Pulse Oximetry 88 L 78 L 89 L Oxygen Delivery Method Nasal Cannula Venturi Mask Oxygen Delivery Flow Rate 2 14 Fraction of Inspired Oxygen 55 08/30/22 21:59 08/30/22 22:17 08/30/22 22:30 Temperature Pulse Rate 108 H 101 H 100 H Pulse Rate [Monitor] Respiratory Rate 22 22 20 Blood Pressure Blood Pressure [Left Arm] Blood Pressure [Right Arm] 83/50 L 112/54 L 108/49 L Pulse Oximetry 88 L 90 L 87 L Oxygen Delivery Method Nasal Cannula Nasal Cannula Nasal Cannula Oxygen Delivery Flow Rate 2 2 2 Fraction of Inspired Oxygen 08/30/22 22:45 08/30/22 23:00 08/30/22 23:15 Temperature Pulse Rate 97 H 98 H 103 H Pulse Rate [Monitor] Respiratory Rate 16 20 Blood Pressure Blood Pressure [Left Arm] Blood Pressure [Right Arm] 104/57 L 99/46 L 120/76 H Pulse Oximetry 85 L 88 L 86 L Oxygen Delivery Method Nasal Cannula Nasal Cannula Nasal Cannula Oxygen Delivery Flow Rate 2 2 2 Fraction of Inspired Oxygen 08/30/22 23:30 08/31/22 00:00 08/31/22 00:30 Temperature Pulse Rate 98 H 103 H 107 H Pulse Rate [Monitor] Respiratory Rate 18 18 18 Blood Pressure Blood Pressure [Left Arm] Blood Pressure [Right Arm] 114/63 116/65 144/80 H Pulse Oximetry 84 L 86 L 88 L Oxygen Delivery Method Nasal Cannula Venturi Mask Venturi Mask Oxygen Delivery Flow Rate 2 Fraction of Inspired Oxygen 55 55 08/31/22 01:00 08/31/22 02:00 08/30/22 22:17 Temperature Pulse Rate 110 H 114 H 100 H Pulse Rate [Monitor] Respiratory Rate 18 18 21 Blood Pressure 112/54 L Blood Pressure [Left Arm] Blood Pressure [Right Arm] 112/84 H 102/71 Pulse Oximetry 83 L 88 L 90 L Oxygen Delivery Method Venturi Mask Venturi Mask Oxygen Delivery Flow Rate 2 Fraction of Inspired Oxygen 55 55 08/30/22 22:30 08/30/22 22:45 08/30/22 23:00 Temperature Pulse Rate 101 H 102 H 101 H Pulse Rate [Monitor] Respiratory Rate 18 18 25 H Blood Pressure 108/49 L 104/57 L 99/46 L Blood Pressure [Left Arm] Blood Pressure [Right Arm] Pulse Oximetry 87 L 87 L 83 L Oxygen Delivery Method Oxygen Delivery Flow Rate Fraction of Inspired Oxygen 08/30/22 23:15 08/30/22 23:30 08/30/22 23:45 Temperature Pulse Rate 101 H 101 H 100 H Pulse Rate [Monitor] Respiratory Rate 19 20 19 Blood Pressure 120/76 H 114/63 117/73 Blood Pressure [Left Arm] Blood Pressure [Right Arm] Pulse Oximetry 89 L 59 L 86 L Oxygen Delivery Method Oxygen Delivery Flow Rate Fraction of Inspired Oxygen 08/31/22 00:00 08/31/22 00:15 08/31/22 00:30 Temperature Pulse Rate 106 H 107 H 107 H Pulse Rate [Monitor] Respiratory Rate 23 20 25 H Blood Pressure 116/65 122/79 H 144/116 H Blood Pressure [Left Arm] Blood Pressure [Right Arm] Pulse Oximetry 85 L 81 L 84 L Oxygen Delivery Method Oxygen Delivery Flow Rate Fraction of Inspired Oxygen 08/31/22 01:00 08/31/22 02:00 08/31/22 02:00 Temperature Pulse Rate 117 H 116 H 120 H Pulse Rate [Monitor] Respiratory Rate 37 H 37 H 37 H Blood Pressure 112/84 H 102/71 102/71 Blood Pressure [Left Arm] Blood Pressure [Right Arm] Pulse Oximetry 67 L 81 L 74 L Oxygen Delivery Method Venturi Mask Oxygen Delivery Flow Rate 55 Fraction of Inspired Oxygen 55 08/31/22 02:00 08/31/22 03:00 08/31/22 04:00 Temperature Pulse Rate 121 H 115 H 114 H Pulse Rate [Monitor] Respiratory Rate 19 23 18 Blood Pressure 102/71 126/81 H 124/75 H Blood Pressure [Left Arm] Blood Pressure [Right Arm] Pulse Oximetry 83 L 83 L 85 L Oxygen Delivery Method Oxygen Delivery Flow Rate Fraction of Inspired Oxygen 08/31/22 06:05 08/31/22 09:36 08/31/22 04:00 Temperature Pulse Rate 105 H 97 H 111 H Pulse Rate [Monitor] Respiratory Rate 26 H 17 Blood Pressure 124/75 H Blood Pressure [Left Arm] 112/64 Blood Pressure [Right Arm] Pulse Oximetry 88 L 86 L Oxygen Delivery Method Venturi Mask Oxygen Delivery Flow Rate 14 Fraction of Inspired Oxygen 55 08/31/22 05:00 08/31/22 06:00 08/31/22 06:06 Temperature Pulse Rate 107 H 108 H 106 H Pulse Rate [Monitor] Respiratory Rate 30 H 27 H 20 Blood Pressure 96/61 127/68 H 112/64 Blood Pressure [Left Arm] Blood Pressure [Right Arm] Pulse Oximetry 88 L 88 L 86 L Oxygen Delivery Method Oxygen Delivery Flow Rate Fraction of Inspired Oxygen 08/31/22 07:00 08/31/22 08:00 08/31/22 09:00 Temperature Pulse Rate 102 H 99 H 104 H Pulse Rate [Monitor] Respiratory Rate 19 18 21 Blood Pressure 118/59 L 118/45 L 89/56 L Blood Pressure [Left Arm] Blood Pressure [Right Arm] Pulse Oximetry 92 L 81 L 91 L Oxygen Delivery Method Oxygen Delivery Flow Rate Fraction of Inspired Oxygen 08/31/22 09:12 08/31/22 09:12 08/31/22 09:12 Temperature Pulse Rate 93 H 93 H 92 H Pulse Rate [Monitor] Respiratory Rate 17 18 17 Blood Pressure 102/52 L 102/52 L 102/52 L Blood Pressure [Left Arm] Blood Pressure [Right Arm] Pulse Oximetry 84 L 86 L 84 L Oxygen Delivery Method Oxygen Delivery Flow Rate Fraction of Inspired Oxygen 08/31/22 10:30 08/31/22 09:12 08/31/22 10:00 Temperature Pulse Rate 93 H 99 H 83 Pulse Rate [Monitor] Respiratory Rate 18 16 Blood Pressure 102/52 L 106/51 L Blood Pressure [Left Arm] Blood Pressure [Right Arm] Pulse Oximetry 96 81 L 91 L Oxygen Delivery Method Oxygen Delivery Flow Rate Fraction of Inspired Oxygen 50 08/31/22 11:00 08/31/22 11:28 08/31/22 11:00 Temperature 100.3 F H Pulse Rate 85 84 Pulse Rate [Monitor] Respiratory Rate 17 17 Blood Pressure 99/47 L 99/47 L Blood Pressure [Left Arm] Blood Pressure [Right Arm] Pulse Oximetry 94 L 93 L Oxygen Delivery Method Oxygen Delivery Flow Rate Fraction of Inspired Oxygen Results Labs Labs: Abnormal lab results 08/30/22 08/30/22 08/31/22 Range/Units 17:00 17:26 04:12 WBC 16.3 H 23.8 H (4.0-11.0) 10^3/uL RBC 3.64 L 3.41 L (4.20-5.40) 10^6/uL Hgb 8.9 L 8.4 L (12.0-16.0) g/dL Hct 31.2 L 30.3 L (36.0-48.0) % MCH 24.5 L 24.6 L (26.7-34.0) pg MCHC 28.5 L 27.7 L (29.9-35.2) g/dL RDW 17.2 H 17.3 H (11.0-15.0) % Neut % (Auto) 95.4 H (43.0-75.0) % Lymph % (Auto) 1.2 L (20.5-60.0) % Eos % (Auto) 0.0 L (0.9-7.0) % Neut # (Auto) 22.7 H (1.4-6.5) 10^3/uL Lymph # (Auto) 0.3 L (1.2-3.8) 10^3/uL Abs Immat Gran (auto) 0.15 H (0.00-0.03) 10^3/uL Lymphocytes % (Manual) 3.0 L (20.5-60.0) % Eosinophils % (Manual) 0.0 L (0.9-7.0) % Basophils % (Manual) 0.0 L (0.2-2.0) % Imm/Tot Granulo (auto) 0.6 H (0.0-0.5) % Neutrophils # (Manual) 14.50 H (1.4-6.5) 10^3/uL Band Neutrophils # 0.8 H (0.0-0.3) 10^3/uL Lymphocytes # (Manual) 0.48 L (1.20-3.80) 10^3/uL Carbon Dioxide 34.2 H 35.9 H (21.0-32.0) mmol/L Glucose 120 H 162 H (74-106) mg/dL Lactate 2.7 H* (0.4-2.0) mmol/L Calcium 8.4 L (8.5-10.1) mg/dL Iron <5.0 L (50.0-170.0) ug/dL Alkaline Phosphatase 118 H (46-116) U/L C-Reactive Protein 11.7 H (<=1.0) mg/dL NT-Pro-B Natriuret Pep 2473.0 H* (<=900.0) pg/mL Albumin 3.2 L 3.0 L (3.4-5.0) g/dL Urine Ketones Trace A (NEGATIVE) mg/dL Urine Nitrite Positive A (NEGATIVE) Streptococcus sp PCR Detected A* (NOT DETECTE) Strep agalactiae (PCR) Detected A* (NOT DETECTE) POC Glucose (74-106) mg/dL 08/31/22 Range/Units 10:53 WBC (4.0-11.0) 10^3/uL RBC (4.20-5.40) 10^6/uL Hgb (12.0-16.0) g/dL Hct (36.0-48.0) % MCH (26.7-34.0) pg MCHC (29.9-35.2) g/dL RDW (11.0-15.0) % Neut % (Auto) (43.0-75.0) % Lymph % (Auto) (20.5-60.0) % Eos % (Auto) (0.9-7.0) % Neut # (Auto) (1.4-6.5) 10^3/uL Lymph # (Auto) (1.2-3.8) 10^3/uL Abs Immat Gran (auto) (0.00-0.03) 10^3/uL Lymphocytes % (Manual) (20.5-60.0) % Eosinophils % (Manual) (0.9-7.0) % Basophils % (Manual) (0.2-2.0) % Imm/Tot Granulo (auto) (0.0-0.5) % Neutrophils # (Manual) (1.4-6.5) 10^3/uL Band Neutrophils # (0.0-0.3) 10^3/uL Lymphocytes # (Manual) (1.20-3.80) 10^3/uL Carbon Dioxide (21.0-32.0) mmol/L Glucose (74-106) mg/dL Lactate (0.4-2.0) mmol/L Calcium (8.5-10.1) mg/dL Iron (50.0-170.0) ug/dL Alkaline Phosphatase (46-116) U/L C-Reactive Protein (<=1.0) mg/dL NT-Pro-B Natriuret Pep (<=900.0) pg/mL Albumin (3.4-5.0) g/dL Urine Ketones (NEGATIVE) mg/dL Urine Nitrite (NEGATIVE) Streptococcus sp PCR (NOT DETECTE) Strep agalactiae (PCR) (NOT DETECTE) POC Glucose 139 H (74-106) mg/dL Diabetes panel 08/30/22 08/31/22 Range/Units 17:00 04:12 Sodium 141 140 (136-145) mmol/L Potassium 3.9 4.2 (3.5-5.1) mmol/L Chloride 102 103 (98-107) mmol/L Carbon Dioxide 34.2 H 35.9 H (21.0-32.0) mmol/L BUN 18.0 17.0 (7.0-18.0) mg/dL Creatinine 0.78 0.91 (0.55-1.02) mg/dL Glucose 120 H 162 H (74-106) mg/dL Hemoglobin A1c 5.7 (4.5-6.2) % Calcium 8.8 8.4 L (8.5-10.1) mg/dL AST 31 24 (15-37) U/L ALT 28 26 (14-59) U/L Alkaline Phosphatase 118 H 106 (46-116) U/L Total Protein 7.0 7.1 (6.4-8.2) g/dL Albumin 3.2 L 3.0 L (3.4-5.0) g/dL Calcium panel 08/30/22 08/31/22 Range/Units 17:00 04:12 Calcium 8.8 8.4 L (8.5-10.1) mg/dL Albumin 3.2 L 3.0 L (3.4-5.0) g/dL Pituitary panel 08/30/22 08/31/22 Range/Units 17:00 04:12 Sodium 141 140 (136-145) mmol/L Potassium 3.9 4.2 (3.5-5.1) mmol/L Chloride 102 103 (98-107) mmol/L Carbon Dioxide 34.2 H 35.9 H (21.0-32.0) mmol/L BUN 18.0 17.0 (7.0-18.0) mg/dL Creatinine 0.78 0.91 (0.55-1.02) mg/dL Glucose 120 H 162 H (74-106) mg/dL Calcium 8.8 8.4 L (8.5-10.1) mg/dL Adrenal panel 08/30/22 08/31/22 Range/Units 17:00 04:12 Sodium 141 140 (136-145) mmol/L Potassium 3.9 4.2 (3.5-5.1) mmol/L Chloride 102 103 (98-107) mmol/L Carbon Dioxide 34.2 H 35.9 H (21.0-32.0) mmol/L BUN 18.0 17.0 (7.0-18.0) mg/dL Creatinine 0.78 0.91 (0.55-1.02) mg/dL Glucose 120 H 162 H (74-106) mg/dL Calcium 8.8 8.4 L (8.5-10.1) mg/dL Total Bilirubin 0.4 0.6 (0.2-1.0) mg/dL AST 31 24 (15-37) U/L ALT 28 26 (14-59) U/L Alkaline Phosphatase 118 H 106 (46-116) U/L Total Protein 7.0 7.1 (6.4-8.2) g/dL Albumin 3.2 L 3.0 L (3.4-5.0) g/dL All other labs normal. Assessment and Plan Assessment and Plan (1) UTI (urinary tract infection): (2) Lymphedema associated with obesity: Assessment and Plan: Assessment - chronic lower extremity lymphedema and associated cellulitis Plan - agree with continuation of IV antibiotics, will and to apply absorbent dressing to the site of her left leg, no surgical process is apparent. (3) Sepsis: (4) On home O2: (5) Obesity: (6) Lymphedema: (7) Edema: (8) COPD (chronic obstructive pulmonary disease):
--- NOTE | 2022-08-31 13:11 | P.HP_ITS ---
H&P: HPI History of Present Illness Chief complaint: sepsis Narrative: 56 y o morbidly obese with chronic lymphedema was brought in for fever, confusion, low blood pressure and worsening seepage,drainage and erythema from her b/l LE for which she was treated with bactrim recently. In ED, her w/u was c/w sepsis sec to cellulitis, requiring aggressive IV hydration for hypotension. This morning on evaluation, she is still lethargic and drowsy. I was not able to carry on a meaningful conversation with her. She is still febrile. Blood pressure is now stable after fluid resuscitation. She uses O2 at home and BIPAP for VAHE and was hypoxic on home O2 and was switched to BIPAP with improvement in her Oxygenation. Denies cough, wheezing. Review of Systems ROS Narrative Limited due to patients clinical condition [facility] Medical History (Updated 08/31/22 @ 17:24 by Shaikh Amna MD) Social History Within the past year, how often did you have a drink containing alcohol: never Score interpretation: A score less than 3 is consistent with normal alcohol consumption. Smoking status: Never smoker Second hand tobacco smoke exposure: No Non-prescribed substance use: denies use Known occupational exposures/hazards: No Are you now , , , , never or living with a partner: In a typical week, how many times do you talk on the telephone with family, friends, or neighbors: 3 or more times per week How often do you get together with friends or relatives: 3 or more times per week How often do you attend adventism or lutheran services: never Do you belong to any clubs or organizations such as adventism groups unions, fraternal or athletic groups, or school groups: no Total score: 2 Score interpretation: A score of greater than or equal to 2 indicates the lowest level of social isolation. Little interest or pleasure in doing things: not at all Feeling down, depressed, or hopeless: several days Feel stressed/tense/nervous/anxious/difficulty sleeping: to some extent Due to disability, difficulty making decisions: No Gender Identity: female Meds Home Medications and Allergies Home Medications Medication Instructions Recorded Confirmed Type albuterol sulfate 2.5 mg/3 mL 2.5 mg continuous nebulization Q6H 08/30/22 08/30/22 History (0.083 %) solution for nebulization PRN shortness of breath or wheezing baclofen 20 mg tablet 20 mg PO DAILY 08/30/22 08/30/22 History budesonide 160 mcg-glycopyr 9 2 inh inhalation DAILY 08/30/22 08/30/22 History mcg-formot 4.8 mcg/actuation HFA inhaler ([facility]) citalopram 40 mg tablet 40 mg PO DAILY 08/30/22 08/30/22 History hydrocodone 5 mg-acetaminophen 325 1 tab PO Q6H PRN pain 08/30/22 08/30/22 History mg tablet oxybutynin chloride 5 mg tablet 5 mg PO DAILY 08/30/22 08/30/22 History prednisone 5 mg tablet 5 mg PO DAILY 08/30/22 08/30/22 History Allergies Allergy/AdvReac Type Severity Reaction Status Date / Time Penicillins Allergy Severe Verified 08/30/22 16:26 Exam Constitutional Vital Signs - 24 hr 08/30/22 16:27 08/30/22 17:15 08/30/22 16:27 Temperature 100.1 F H Pulse Rate Pulse Rate [Monitor] 108 H Respiratory Rate 26 H Blood Pressure 112/54 L Blood Pressure [Left Arm] Blood Pressure [Right Arm] 112/54 L Pulse Oximetry 94 L 91 L Oxygen Delivery Method Nasal Cannula Nasal Cannula Oxygen Delivery Flow Rate 2.5 2 Fraction of Inspired Oxygen 08/30/22 16:34 08/30/22 17:01 08/30/22 17:31 Temperature Pulse Rate 103 H 107 H Pulse Rate [Monitor] Respiratory Rate 22 19 Blood Pressure 100/36 L 108/82 H 84/62 L Blood Pressure [Left Arm] Blood Pressure [Right Arm] Pulse Oximetry 94 L 96 Oxygen Delivery Method Oxygen Delivery Flow Rate Fraction of Inspired Oxygen 08/30/22 17:55 08/30/22 18:00 08/30/22 22:11 Temperature 98.5 F Pulse Rate 112 H 107 H 99 H Pulse Rate [Monitor] Respiratory Rate 20 25 H 20 Blood Pressure 138/72 H 128/87 H Blood Pressure [Left Arm] Blood Pressure [Right Arm] 112/54 L Pulse Oximetry 68 L 96 91 L Oxygen Delivery Method Nasal Cannula Oxygen Delivery Flow Rate 2 Fraction of Inspired Oxygen 08/30/22 22:11 08/30/22 18:00 08/30/22 18:30 Temperature Pulse Rate 109 H 109 H Pulse Rate [Monitor] 99 H Respiratory Rate 20 19 27 H Blood Pressure 128/87 H 92/68 Blood Pressure [Left Arm] Blood Pressure [Right Arm] Pulse Oximetry 91 L 99 96 Oxygen Delivery Method Nasal Cannula Oxygen Delivery Flow Rate 2 Fraction of Inspired Oxygen 08/30/22 19:00 08/30/22 19:30 08/30/22 20:00 Temperature Pulse Rate 110 H 109 H 108 H Pulse Rate [Monitor] Respiratory Rate 20 19 16 Blood Pressure 112/59 L 94/45 L 113/47 L Blood Pressure [Left Arm] Blood Pressure [Right Arm] Pulse Oximetry 93 L 93 L 92 L Oxygen Delivery Method Oxygen Delivery Flow Rate Fraction of Inspired Oxygen 08/30/22 20:30 08/30/22 21:00 08/30/22 21:30 Temperature Pulse Rate 113 H 109 H Pulse Rate [Monitor] Respiratory Rate 28 H 21 Blood Pressure 91/44 L 100/48 L 82/63 L Blood Pressure [Left Arm] Blood Pressure [Right Arm] Pulse Oximetry 88 L 90 L Oxygen Delivery Method Oxygen Delivery Flow Rate Fraction of Inspired Oxygen 08/30/22 21:50 08/30/22 21:59 08/30/22 21:59 Temperature Pulse Rate 102 H 108 H Pulse Rate [Monitor] Respiratory Rate 19 18 Blood Pressure 91/56 L 83/50 L Blood Pressure [Left Arm] Blood Pressure [Right Arm] Pulse Oximetry 91 L Oxygen Delivery Method Oxygen Delivery Flow Rate Fraction of Inspired Oxygen 08/30/22 22:17 08/30/22 23:45 08/31/22 00:02 Temperature Pulse Rate 99 H Pulse Rate [Monitor] Respiratory Rate 18 Blood Pressure 112/54 L Blood Pressure [Left Arm] Blood Pressure [Right Arm] Pulse Oximetry 88 L 78 L 89 L Oxygen Delivery Method Nasal Cannula Venturi Mask Oxygen Delivery Flow Rate 2 14 Fraction of Inspired Oxygen 55 08/30/22 21:59 08/30/22 22:17 08/30/22 22:30 Temperature Pulse Rate 108 H 101 H 100 H Pulse Rate [Monitor] Respiratory Rate 22 22 20 Blood Pressure Blood Pressure [Left Arm] Blood Pressure [Right Arm] 83/50 L 112/54 L 108/49 L Pulse Oximetry 88 L 90 L 87 L Oxygen Delivery Method Nasal Cannula Nasal Cannula Nasal Cannula Oxygen Delivery Flow Rate 2 2 2 Fraction of Inspired Oxygen 08/30/22 22:45 08/30/22 23:00 08/30/22 23:15 Temperature Pulse Rate 97 H 98 H 103 H Pulse Rate [Monitor] Respiratory Rate 16 20 Blood Pressure Blood Pressure [Left Arm] Blood Pressure [Right Arm] 104/57 L 99/46 L 120/76 H Pulse Oximetry 85 L 88 L 86 L Oxygen Delivery Method Nasal Cannula Nasal Cannula Nasal Cannula Oxygen Delivery Flow Rate 2 2 2 Fraction of Inspired Oxygen 08/30/22 23:30 08/31/22 00:00 08/31/22 00:30 Temperature Pulse Rate 98 H 103 H 107 H Pulse Rate [Monitor] Respiratory Rate 18 18 18 Blood Pressure Blood Pressure [Left Arm] Blood Pressure [Right Arm] 114/63 116/65 144/80 H Pulse Oximetry 84 L 86 L 88 L Oxygen Delivery Method Nasal Cannula Venturi Mask Venturi Mask Oxygen Delivery Flow Rate 2 Fraction of Inspired Oxygen 55 55 08/31/22 01:00 08/31/22 02:00 08/30/22 22:17 Temperature Pulse Rate 110 H 114 H 100 H Pulse Rate [Monitor] Respiratory Rate 18 18 21 Blood Pressure 112/54 L Blood Pressure [Left Arm] Blood Pressure [Right Arm] 112/84 H 102/71 Pulse Oximetry 83 L 88 L 90 L Oxygen Delivery Method Venturi Mask Venturi Mask Oxygen Delivery Flow Rate 2 Fraction of Inspired Oxygen 55 55 08/30/22 22:30 08/30/22 22:45 08/30/22 23:00 Temperature Pulse Rate 101 H 102 H 101 H Pulse Rate [Monitor] Respiratory Rate 18 18 25 H Blood Pressure 108/49 L 104/57 L 99/46 L Blood Pressure [Left Arm] Blood Pressure [Right Arm] Pulse Oximetry 87 L 87 L 83 L Oxygen Delivery Method Oxygen Delivery Flow Rate Fraction of Inspired Oxygen 08/30/22 23:15 08/30/22 23:30 08/30/22 23:45 Temperature Pulse Rate 101 H 101 H 100 H Pulse Rate [Monitor] Respiratory Rate 19 20 19 Blood Pressure 120/76 H 114/63 117/73 Blood Pressure [Left Arm] Blood Pressure [Right Arm] Pulse Oximetry 89 L 59 L 86 L Oxygen Delivery Method Oxygen Delivery Flow Rate Fraction of Inspired Oxygen 08/31/22 00:00 08/31/22 00:15 08/31/22 00:30 Temperature Pulse Rate 106 H 107 H 107 H Pulse Rate [Monitor] Respiratory Rate 23 20 25 H Blood Pressure 116/65 122/79 H 144/116 H Blood Pressure [Left Arm] Blood Pressure [Right Arm] Pulse Oximetry 85 L 81 L 84 L Oxygen Delivery Method Oxygen Delivery Flow Rate Fraction of Inspired Oxygen 08/31/22 01:00 08/31/22 02:00 08/31/22 02:00 Temperature Pulse Rate 117 H 116 H 120 H Pulse Rate [Monitor] Respiratory Rate 37 H 37 H 37 H Blood Pressure 112/84 H 102/71 102/71 Blood Pressure [Left Arm] Blood Pressure [Right Arm] Pulse Oximetry 67 L 81 L 74 L Oxygen Delivery Method Venturi Mask Oxygen Delivery Flow Rate 55 Fraction of Inspired Oxygen 55 08/31/22 02:00 08/31/22 03:00 08/31/22 04:00 Temperature Pulse Rate 121 H 115 H 114 H Pulse Rate [Monitor] Respiratory Rate 19 23 18 Blood Pressure 102/71 126/81 H 124/75 H Blood Pressure [Left Arm] Blood Pressure [Right Arm] Pulse Oximetry 83 L 83 L 85 L Oxygen Delivery Method Oxygen Delivery Flow Rate Fraction of Inspired Oxygen 08/31/22 06:05 08/31/22 09:36 08/31/22 04:00 Temperature Pulse Rate 105 H 97 H 111 H Pulse Rate [Monitor] Respiratory Rate 26 H 17 Blood Pressure 124/75 H Blood Pressure [Left Arm] 112/64 Blood Pressure [Right Arm] Pulse Oximetry 88 L 86 L Oxygen Delivery Method Venturi Mask Oxygen Delivery Flow Rate 14 Fraction of Inspired Oxygen 55 08/31/22 05:00 08/31/22 06:00 08/31/22 06:06 Temperature Pulse Rate 107 H 108 H 106 H Pulse Rate [Monitor] Respiratory Rate 30 H 27 H 20 Blood Pressure 96/61 127/68 H 112/64 Blood Pressure [Left Arm] Blood Pressure [Right Arm] Pulse Oximetry 88 L 88 L 86 L Oxygen Delivery Method Oxygen Delivery Flow Rate Fraction of Inspired Oxygen 08/31/22 07:00 08/31/22 08:00 08/31/22 09:00 Temperature Pulse Rate 102 H 99 H 104 H Pulse Rate [Monitor] Respiratory Rate 19 18 21 Blood Pressure 118/59 L 118/45 L 89/56 L Blood Pressure [Left Arm] Blood Pressure [Right Arm] Pulse Oximetry 92 L 81 L 91 L Oxygen Delivery Method Oxygen Delivery Flow Rate Fraction of Inspired Oxygen 08/31/22 09:12 08/31/22 09:12 08/31/22 09:12 Temperature Pulse Rate 93 H 93 H 92 H Pulse Rate [Monitor] Respiratory Rate 17 18 17 Blood Pressure 102/52 L 102/52 L 102/52 L Blood Pressure [Left Arm] Blood Pressure [Right Arm] Pulse Oximetry 84 L 86 L 84 L Oxygen Delivery Method Oxygen Delivery Flow Rate Fraction of Inspired Oxygen 08/31/22 10:30 08/31/22 09:12 08/31/22 10:00 Temperature Pulse Rate 93 H 99 H 83 Pulse Rate [Monitor] Respiratory Rate 18 16 Blood Pressure 102/52 L 106/51 L Blood Pressure [Left Arm] Blood Pressure [Right Arm] Pulse Oximetry 96 81 L 91 L Oxygen Delivery Method Oxygen Delivery Flow Rate Fraction of Inspired Oxygen 50 08/31/22 11:00 08/31/22 11:28 08/31/22 11:00 Temperature 100.3 F H Pulse Rate 85 84 Pulse Rate [Monitor] Respiratory Rate 17 17 Blood Pressure 99/47 L 99/47 L Blood Pressure [Left Arm] Blood Pressure [Right Arm] Pulse Oximetry 94 L 93 L Oxygen Delivery Method Oxygen Delivery Flow Rate Fraction of Inspired Oxygen Documenting provider has reviewed patient's vital signs: yes Common normals: no apparent distress General appearance: cooperative Nutritional appearance: obese Orientation/consciousness: Yes lethargic HENMT Common normals: normocephalic and head/scalp atraumatic Eye Common normals: conjunctivae normal and no scleral icterus Respiratory Common normals: normal respiratory effort, no use of accessory muscles and clear to auscultation bilaterally (diminished air entry) Cardio Common normals: no JVD, S1 normal heart sound, S2 normal heart sound and no murmurs GI Common normals: Normal to inspection, nondistended, normoactive bowel sounds present, no hepatosplenomegaly and no masses Extremity Other: B/l LE edema, chronic lymphedema with erythema,macerated skin innner thigh region that seems c/w cellulitis Neuro Common normals: oriented x3, no focal motor deficits and no sensory deficits noted Psych Common normals: cooperative, denies homicidal ideation and denies suicidal i deation Results Labs Labs: Short CBC 08/30/22 08/31/22 Range/Units 17:00 04:12 WBC 16.3 H 23.8 H (4.0-11.0) 10^3/uL Hgb 8.9 L 8.4 L (12.0-16.0) g/dL Hct 31.2 L 30.3 L (36.0-48.0) % Plt Count 285 287 (150-450) 10^3/uL BMP 08/30/22 08/31/22 17:00 04:12 Sodium 141 140 Potassium 3.9 4.2 Chloride 102 103 Carbon Dioxide 34.2 H 35.9 H BUN 18.0 17.0 Creatinine 0.78 0.91 Glucose 120 H 162 H Calcium 8.8 8.4 L Liver Function 08/30/22 08/31/22 Range/Units 17:00 04:12 Total Bilirubin 0.4 0.6 (0.2-1.0) mg/dL AST 31 24 (15-37) U/L ALT 28 26 (14-59) U/L Alkaline Phosphatase 118 H 106 (46-116) U/L Albumin 3.2 L 3.0 L (3.4-5.0) g/dL Urine 08/30/22 Range/Units 17:26 Urine Color Lt. yellow (YELLOW) Urine Clarity Clear (CLEAR) Urine pH 6.0 (5.0-9.0) Ur Specific [place] 1.020 (1.005-1.025) Urine Protein Negative (NEG/TRACE) mg/dL Urine Glucose (UA) Negative (NEGATIVE) mg/dL Assessment and Plan Assessment and Plan (1) Sepsis: Assessment and Plan: Fever along with leukocytosis - meeting SIRS criteria. Still febrile. Initially she was hypoxic and required agressive IV hydration. Hemodynamics are stable now. On IV zyvox and Roecephin for Cellulitis. F/u blood and urine cx. Final report is pending but PCR testing shows blood cx positive for Group B aglactiae. Qualifiers: Sepsis type: Streptococcus group B Sepsis acute organ dysfunction status: without acute organ dysfunction Qualified Code(s): A40.1 - Sepsis due to streptococcus, group B (2) Gram-positive bacteremia: Assessment and Plan: Likely from cellulitis. Final C&S report pending On Zyvox and ROcephin. General surgery on consult. (3) Cellulitis: Onset Date: ~08/2022 Assessment and Plan: On IV abx. F/u cx. Qualifiers: Site of cellulitis: extremity Site of cellulitis of extremity: lower extremity Laterality: unspecified laterality Qualified Code(s): L03.119 - Cellulitis of unspecified part of limb (4) Lymphedema associated with obesity: Assessment and Plan: Chronic lower extremity lymphedema and associated cellulitis Wound care on consult (5) COPD (chronic obstructive pulmonary disease): Assessment and Plan: No active wheezing or resp distress. but very difficult to examine due to her body habitus and can barely hear lung sounds. C/w duonebs Qualifiers: COPD type: unspecified COPD Qualified Code(s): J44.9 - Chronic obstructive pulmonary disease, unspecified (6) Chronic respiratory failure requiring use of nocturnal bilevel positive airway pressure (BPAP) by mask: Assessment and Plan: Non complaint and supposed to be on BIPAP. She was hypoxic on her home O2 and was switched to BIPAP. (7) Acute and chronic respiratory failure with hypoxia: Assessment and Plan: Currently on BIPAP for hypoxia. Does not appear to have COPD exacerbation or intravascular volume overload as she presented with sepsis and required IVF. She is on Zyvox and rocephin for cellulitis so that would cover for Pna if there was PNA. Limited exam possible due to her body habitus. Monitor for now Will d/c IVF now.
--- NOTE | 2022-08-31 13:28 | DIETREC ---
Nutrition Recommendations: 1. 2 g Sodium Diet. Reviewed with
--- NOTE | 2022-08-31 13:51 | PC.NURSE ---
dr figueroa made aware that aquacel or maxsorb is not available for dressings.
--- NOTE | 2022-08-31 14:06 | SWNOTE1 ---
SW met with pt and to discuss dc needs. Pt is at home with and daughter. She has [facility] coming in, nursing and OT. Pt has home oxygen, 2-2.5 liters through [facility]. Pt has a bedside commode, walker, hospital bed, and chair lift. Pt stated for past 6 years she basically lived in her living room. SW and pt did talk about the possibility of going to rehab. She said she will do whatever is recommended. Pt does know due to her weight she cannot go to certain facilities. Pt is familiar with [facility] in [place]. KIRSTIN to check if PT/OT ordered. Pt will be a precert if rehab needed.
--- NOTE | 2022-08-31 14:13 | SWNOTE1 ---
SW did review IMM form with pt and . They voiced understanding, no questions. Pt signed form, original given to pt and copy placed in chart.
[2022-08-31 16:37] LABS: Glucometer 145 mg/dL (74-106)
[2022-08-31 21:20] LABS: Glucometer 141 mg/dL (74-106)
[2022-08-31] MEDS: LINEZOLID IN DEXTROSE 5% 600 MG/300 ML PIGGYBACK 200 MG IV (22:14)
[2022-08-31] MEDS: PROCHLORPERAZINE 10 MG/2 ML VIAL IV (22:14)
[2022-09-01] VITALS (41 sets, daily range): BP systolic 99–133; BP diastolic 54–80; PULSE 80–96; RESP 10–27; TEMP 36.9–37.4; O2SAT 87–99
[2022-09-01] MEDS: PROCHLORPERAZINE 10 MG/2 ML VIAL IV ×3 (05:14→20:11)
[2022-09-01] MEDS: HYDROCODONE/ACETAMINOPHEN 5-325 MG TABLET 1 TAB PO ×2 (05:14→11:00)
[2022-09-01 07:09] LABS: Glucometer 133 mg/dL (74-106)
[2022-09-01] MEDS: OXYBUTYNIN chloride 5 MG TABLET PO (08:10)
[2022-09-01] MEDS: ENOXAPARIN SODIUM 60 MG/0.6 ML SYRINGE SUBQ ×2 (08:10→20:11)
[2022-09-01] MEDS: PREDNISONE 5 MG TABLET PO (08:10)
[2022-09-01 08:37] LABS: Basophils Percent Auto 0.1 % (0.2-2.0); Eosinophils Absolute Auto 0.1 10^3/uL (0.0-0.7); Eosinophils Percent Auto 0.5 % (0.9-7.0); Hematocrit 27.3 % (36.0-48.0); Hemoglobin 7.6 g/dL (12.0-16.0); Immature Granulocytes Abs Auto 0.03 10^3/uL (0.00-0.03); Immature Granulocytes Pct Auto 0.3 % (0.0-0.5); Lymphocytes Absolute Auto 0.3 10^3/uL (1.2-3.8); Lymphocytes Percent Auto 2.8 % (20.5-60.0); Mean Corpuscular HGB Conc 27.8 g/dL (29.9-35.2); Mean Corpuscular Hemoglobin 24.2 pg (26.7-34.0); Mean Corpuscular Volume 86.9 fL (81.0-99.0); Mean Platelet Volume 11.3 fL (9.5-13.5); Monocytes Absolute Auto 1.1 10^3/uL (0.3-0.8); Monocytes Percent Auto 11.2 % (1.7-12.0); Neutrophils Absolute Auto 8.3 10^3/uL (1.4-6.5); Neutrophils Percent Auto 85.1 % (43.0-75.0); Platelet Count 195 10^3/uL (150-450); Red Blood Count 3.14 10^6/uL (4.20-5.40); Red Cell Distribution Width 17.2 % (11.0-15.0); White Blood Count 9.7 10^3/uL (4.0-11.0)
[2022-09-01 08:46] LABS: Alanine Aminotransferase 31 U/L (14-59); Albumin Globulin Ratio 0.6; Albumin Level 2.3 g/dL (3.4-5.0); Alkaline Phosphatase 95 U/L (46-116); Anion Gap 7.5; Aspartate Amino Transferase 38 U/L (15-37); BUN Creatinine Ratio 21.6; Bilirubin Total 0.5 mg/dL (0.2-1.0); Calcium 8.5 mg/dL (8.5-10.1); Carbon Dioxide 32.6 mmol/L (21.0-32.0); Chloride 102 mmol/L (98-107); Estimated GFR (African America >60 (>=60); Estimated GFR (Non-African Ame >60 (>=60); Globulin 3.7 g/dL; Glucose 120 mg/dL (74-106); Potassium 4.1 mmol/L (3.5-5.1); Sodium 138 mmol/L (136-145)
[2022-09-01 09:49] LABS: Basophils Percent Auto 0.1 % (0.2-2.0); Eosinophils Absolute Auto 0.1 10^3/uL (0.0-0.7); Eosinophils Percent Auto 0.8 % (0.9-7.0); Hematocrit 25.9 % (36.0-48.0); Hemoglobin 7.3 g/dL (12.0-16.0); Immature Granulocytes Abs Auto 0.05 10^3/uL (0.00-0.03); Immature Granulocytes Pct Auto 0.5 % (0.0-0.5); Lymphocytes Absolute Auto 0.2 10^3/uL (1.2-3.8); Lymphocytes Percent Auto 2.3 % (20.5-60.0); Mean Corpuscular HGB Conc 28.2 g/dL (29.9-35.2); Mean Corpuscular Hemoglobin 24.3 pg (26.7-34.0); Mean Corpuscular Volume 86.3 fL (81.0-99.0); Mean Platelet Volume 10.2 fL (9.5-13.5); Monocytes Absolute Auto 0.9 10^3/uL (0.3-0.8); Monocytes Percent Auto 9.3 % (1.7-12.0); Neutrophils Absolute Auto 8.3 10^3/uL (1.4-6.5); Platelet Count 190 10^3/uL (150-450); White Blood Count 9.6 10^3/uL (4.0-11.0)
[2022-09-01] MEDS: BACLOFEN 10 MG TABLET 20 MG PO (10:00)
[2022-09-01] MEDS: LINEZOLID IN DEXTROSE 5% 600 MG/300 ML PIGGYBACK 200 MG IV (10:00)
[2022-09-01] MEDS: CITALOPRAM HYDROBROMIDE 20 MG TABLET 40 MG PO (10:00)
--- NOTE | 2022-09-01 10:14 | SWNOTE1 ---
SW spoke with OT and they were getting ready to work with pt. Physical therapy worked with pt and rehab recommended. SW called [facility] and they do have openings and take [employer]. SW to send referral once PT/OT documented.
[2022-09-01 10:59] LABS: Glucometer 181 mg/dL (74-106)
[2022-09-01] MEDS: CEFTRIAXONE 2,000 MG in 0.9 % SODIUM CHLORIDE 100 ML 200 MG IV (11:00)
[2022-09-01] MEDS: IPRATROPIUM/ALBUTEROL SULFATE 3 ML AMPUL.NEB IH ×3 (11:42→23:12)
--- NOTE | 2022-09-01 12:20 | CM.NOTE ---
Rounds made with Dr. Woo, no discharge today. Discussed skilled rehab with pt, pt in agreement.
--- NOTE | 2022-09-01 12:39 | SWNOTE1 ---
Referral sent to [facility].
--- NOTE | 2022-09-01 12:41 | P.IMPN_ITS ---
Progress Note: A&P Assessment and Plan (1) Sepsis: Assessment and Plan: Stable hemodynamics. On gentle IV hydration now. Qualifiers: Sepsis acute organ dysfunction status: without acute organ dysfunction Sepsis type: Streptococcus group B Qualified Code(s): A40.1 - Sepsis due to streptococcus, group B (2) Gram-positive bacteremia: Assessment and Plan: Step Aglactiae in blood. On Zyvox and Rocephin. Awaiting final C&S. 2D ECHO pending (3) Cellulitis: Onset Date: ~08/2022 Assessment and Plan: From chronic lymphedema, skin break down. Wound care, IV abx as outline above Qualifiers: Site of cellulitis: extremity Site of cellulitis of extremity: lower extremity Laterality: unspecified laterality Qualified Code(s): L03.119 - Cellulitis of unspecified part of limb (4) Lymphedema associated with obesity: Assessment and Plan: Outpatient f/u with Lymphedema clinic possibly [facility] (5) COPD (chronic obstructive pulmonary disease): Assessment and Plan: stable. No wheezing. No resp symptoms Qualifiers: COPD type: unspecified COPD Qualified Code(s): J44.9 - Chronic obstructive pulmonary disease, unspecified (6) Chronic respiratory failure requiring use of nocturnal bilevel positive airway pressure (BPAP) by mask: Assessment and Plan: BIPAP qhs and as needed (7) Acute and chronic respiratory failure with hypoxia: Assessment and Plan: resolved. likely from sepsis. Monitor. (8) Anemia: Assessment and Plan: Chronic anemia at baseline. Acutely low today likely due to sepsis. Ordered one unit PRBC. No evidence of overt bleeding. Monitor and f/u Qualifiers: Anemia type: unspecified type Qualified Code(s): D64.9 - Anemia, unspecified (9) Chronic pain: Assessment and Plan: From sepsis, obesity. Increase Hydrocodone dose for improved pain control Internal Medicine - PN: Subj Subjective Interval history: Seen and examined. More awake and alert. BP is stable. Reports feeling tired, weak and complaining of generalized bodyaches. On 2-3 L O2 via NC that is her baseline. No overnight events. Exam Constitutional Vital Signs - 24 hr 08/31/22 13:00 08/31/22 14:00 08/31/22 15:06 Temperature Pulse Rate 84 83 86 Pulse Rate [Monitor] Respiratory Rate 18 16 12 Blood Pressure 107/61 125/73 H Pulse Oximetry 88 L 96 93 L Oxygen Delivery Method Oxygen Delivery Flow Rate Fraction of Inspired Oxygen 08/31/22 15:10 08/31/22 15:16 08/31/22 15:16 Temperature Pulse Rate 87 83 84 Pulse Rate [Monitor] Respiratory Rate 19 17 17 Blood Pressure 134/81 H Pulse Oximetry 96 95 96 Oxygen Delivery Method Oxygen Delivery Flow Rate Fraction of Inspired Oxygen 08/31/22 15:16 08/31/22 15:00 08/31/22 15:16 Temperature Pulse Rate 83 85 82 Pulse Rate [Monitor] Respiratory Rate 17 15 Blood Pressure 134/81 H 134/81 H Pulse Oximetry 96 96 Oxygen Delivery Method Oxygen Delivery Flow Rate Fraction of Inspired Oxygen 08/31/22 15:37 08/31/22 15:51 08/31/22 15:16 Temperature 100.3 F H Pulse Rate 79 85 Pulse Rate [Monitor] Respiratory Rate 14 Blood Pressure 134/81 H Pulse Oximetry 97 96 Oxygen Delivery Method Oxygen Delivery Flow Rate Fraction of Inspired Oxygen 50 08/31/22 16:00 08/31/22 17:13 08/31/22 19:37 Temperature Pulse Rate 81 77 Pulse Rate [Monitor] 83 Respiratory Rate 14 Blood Pressure 131/75 H Pulse Oximetry 96 Oxygen Delivery Method Oxygen Delivery Flow Rate Fraction of Inspired Oxygen 08/31/22 19:47 08/31/22 21:11 08/31/22 16:00 Temperature 99.2 F Pulse Rate 89 83 Pulse Rate [Monitor] Respiratory Rate 24 Blood Pressure 131/75 H Pulse Oximetry 93 L 96 97 Oxygen Delivery Method Nasal Cannula Oxygen Delivery Flow Rate 3 Fraction of Inspired Oxygen 08/31/22 17:00 08/31/22 18:00 08/31/22 19:00 Temperature Pulse Rate 78 85 84 Pulse Rate [Monitor] Respiratory Rate 14 17 13 Blood Pressure 133/67 H 132/74 H 135/76 H Pulse Oximetry 96 93 L 93 L Oxygen Delivery Method Oxygen Delivery Flow Rate Fraction of Inspired Oxygen 08/31/22 22:02 08/31/22 19:00 08/31/22 20:00 Temperature 99.2 F Pulse Rate 86 87 88 Pulse Rate [Monitor] Respiratory Rate 15 14 Blood Pressure 135/76 H 138/71 H Pulse Oximetry 96 95 95 Oxygen Delivery Method Oxygen Delivery Flow Rate Fraction of Inspired Oxygen 08/31/22 21:03 08/31/22 21:10 08/31/22 21:20 Temperature Pulse Rate 86 87 88 Pulse Rate [Monitor] Respiratory Rate 14 14 15 Blood Pressure Pulse Oximetry 96 94 L 94 L Oxygen Delivery Method Oxygen Delivery Flow Rate Fraction of Inspired Oxygen 08/31/22 21:30 08/31/22 21:40 08/31/22 21:50 Temperature Pulse Rate 87 89 91 H Pulse Rate [Monitor] Respiratory Rate 13 12 15 Blood Pressure Pulse Oximetry 95 96 92 L Oxygen Delivery Method Oxygen Delivery Flow Rate Fraction of Inspired Oxygen 08/31/22 22:00 08/31/22 22:10 08/31/22 22:20 Temperature Pulse Rate 90 84 88 Pulse Rate [Monitor] Respiratory Rate 12 13 14 Blood Pressure Pulse Oximetry 92 L 95 95 Oxygen Delivery Method Oxygen Delivery Flow Rate Fraction of Inspired Oxygen 08/31/22 22:28 08/31/22 22:28 08/31/22 22:28 Temperature Pulse Rate 83 82 81 Pulse Rate [Monitor] Respiratory Rate 14 15 14 Blood Pressure 91/54 L 91/54 L Pulse Oximetry 96 95 96 Oxygen Delivery Method Oxygen Delivery Flow Rate Fraction of Inspired Oxygen 08/31/22 22:28 08/31/22 22:28 08/31/22 22:57 Temperature 99 F Pulse Rate 83 89 90 Pulse Rate [Monitor] Respiratory Rate 14 14 13 Blood Pressure 91/54 L 91/54 L 111/60 Pulse Oximetry 96 89 L 93 L Oxygen Delivery Method Nasal Cannula Oxygen Delivery Flow Rate 3 Fraction of Inspired Oxygen 08/31/22 23:00 08/31/22 23:53 09/01/22 01:12 Temperature Pulse Rate 84 83 82 Pulse Rate [Monitor] Respiratory Rate 13 Blood Pressure 109/74 Pulse Oximetry 95 96 97 Oxygen Delivery Method Oxygen Delivery Flow Rate Fraction of Inspired Oxygen 08/31/22 23:00 09/01/22 00:00 09/01/22 00:00 Temperature Pulse Rate 80 83 85 Pulse Rate [Monitor] Respiratory Rate 12 11 L 15 Blood Pressure 109/74 115/56 L 115/56 L Pulse Oximetry 96 95 95 Oxygen Delivery Method Oxygen Delivery Flow Rate Fraction of Inspired Oxygen 09/01/22 01:00 09/01/22 02:26 09/01/22 02:59 Temperature Pulse Rate 82 85 Pulse Rate [Monitor] 90 Respiratory Rate 13 Blood Pressure 105/62 Pulse Oximetry 96 Oxygen Delivery Method Oxygen Delivery Flow Rate Fraction of Inspired Oxygen 09/01/22 01:00 09/01/22 02:00 09/01/22 03:00 Temperature Pulse Rate 84 92 H 88 Pulse Rate [Monitor] Respiratory Rate 12 14 12 Blood Pressure 105/62 123/57 H 126/80 H Pulse Oximetry 96 93 L 96 Oxygen Delivery Method Oxygen Delivery Flow Rate Fraction of Inspired Oxygen 09/01/22 04:05 09/01/22 04:00 09/01/22 03:00 Temperature 98.8 F Pulse Rate 90 87 Pulse Rate [Monitor] Respiratory Rate 13 Blood Pressure 126/80 H Pulse Oximetry 96 96 96 Oxygen Delivery Method Nasal Cannula Oxygen Delivery Flow Rate 3 Fraction of Inspired Oxygen 09/01/22 04:00 09/01/22 04:00 09/01/22 05:28 Temperature 98.8 F Pulse Rate 86 89 90 Pulse Rate [Monitor] Respiratory Rate 13 13 Blood Pressure 116/71 116/71 Pulse Oximetry 96 95 96 Oxygen Delivery Method Oxygen Delivery Flow Rate Fraction of Inspired Oxygen 09/01/22 07:17 09/01/22 07:34 09/01/22 04:00 Temperature Pulse Rate 96 H 90 Pulse Rate [Monitor] Respiratory Rate 16 Blood Pressure 116/71 Pulse Oximetry 96 96 Oxygen Delivery Method Nasal Cannula Oxygen Delivery Flow Rate 3 Fraction of Inspired Oxygen 09/01/22 05:00 09/01/22 06:00 09/01/22 07:00 Temperature 99.3 F Pulse Rate 91 H 95 H 94 H Pulse Rate [Monitor] Respiratory Rate 12 16 12 Blood Pressure 122/74 H 99/63 111/61 Pulse Oximetry 95 96 95 Oxygen Delivery Method Oxygen Delivery Flow Rate Fraction of Inspired Oxygen 09/01/22 07:00 09/01/22 08:00 09/01/22 09:07 Temperature Pulse Rate 95 H 91 H 92 H Pulse Rate [Monitor] Respiratory Rate 14 12 Blood Pressure 111/61 109/54 L Pulse Oximetry 95 96 Oxygen Delivery Method Oxygen Delivery Flow Rate Fraction of Inspired Oxygen 09/01/22 11:19 09/01/22 11:17 09/01/22 08:00 Temperature 99.2 F Pulse Rate 90 Pulse Rate [Monitor] Respiratory Rate 15 Blood Pressure 109/54 L Pulse Oximetry 94 L 96 Oxygen Delivery Method Nasal Cannula Oxygen Delivery Flow Rate 3 Fraction of Inspired Oxygen 09/01/22 10:56 09/01/22 11:47 Temperature Pulse Rate 93 H Pulse Rate [Monitor] Respiratory Rate 12 Blood Pressure 128/64 H Pulse Oximetry 92 L 94 L Oxygen Delivery Method Nasal Cannula Oxygen Delivery Flow Rate 3 Fraction of Inspired Oxygen Documenting provider has reviewed patient's vital signs: yes Common normals: no apparent distress General appearance: cooperative Nutritional appearance: obese HENMT Common normals: normocephalic and head/scalp atraumatic Eye Common normals: conjunctivae normal and no scleral icterus Respiratory Common normals: normal respiratory effort, no use of accessory muscles and clear to auscultation bilaterally (diminished air entry) Cardio Common normals: no JVD, S1 normal heart sound, S2 normal heart sound and no murmurs GI Common normals: Normal to inspection, nondistended, normoactive bowel sounds present, no hepatosplenomegaly and no masses Extremity Other: B/l LE edema, chronic lymphedema with erythema,macerated skin innner thigh region that seems c/w cellulitis Neuro Common normals: oriented x3, no focal motor deficits and no sensory deficits noted Psych Common normals: cooperative, denies homicidal ideation and denies suicidal ideation Internal Medicine - PN: Obj Da Labs Labs: Laboratory Results - last 24 hr 08/31/22 08/31/22 09/01/22 16:34 21:18 04:00 WBC 9.7 RBC 3.14 L Hgb 7.6 L Hct 27.3 L MCV 86.9 MCH 24.2 L MCHC 27.8 L RDW 17.2 H Plt Count 195 MPV 11.3 Neut % (Auto) 85.1 H Lymph % (Auto) 2.8 L [place] % (Auto) 11.2 Eos % (Auto) 0.5 L Baso % (Auto) 0.1 L Neut # (Auto) 8.3 H Lymph # (Auto) 0.3 L [place] # (Auto) 1.1 H Eos # (Auto) 0.1 Baso # (Auto) 0.0 Abs Immat Gran (auto) 0.03 Imm/Tot Granulo (auto) 0.3 Sodium 138 Potassium 4.1 Chloride 102 Carbon Dioxide 32.6 H Anion Gap 7.5 BUN 16.0 Creatinine 0.74 Est GFR ( Amer) >60 Est GFR (Non-Af Amer) >60 BUN/Creatinine Ratio 21.6 Glucose 120 H Calcium 8.5 Total Bilirubin 0.5 AST 38 H ALT 31 Alkaline Phosphatase 95 Total Protein 6.0 L Albumin 2.3 L Globulin 3.7 Albumin/Globulin Ratio 0.6 POC Glucose 145 H 141 H Blood Type Antibody Screen Crossmatch 09/01/22 09/01/22 09/01/22 07:07 09:40 10:55 WBC 9.6 RBC 3.00 L Hgb 7.3 L Hct 25.9 L MCV 86.3 MCH 24.3 L MCHC 28.2 L RDW 17.0 H Plt Count 190 MPV 10.2 Neut % (Auto) 87.0 H Lymph % (Auto) 2.3 L [place] % (Auto) 9.3 Eos % (Auto) 0.8 L Baso % (Auto) 0.1 L Neut # (Auto) 8.3 H Lymph # (Auto) 0.2 L [place] # (Auto) 0.9 H Eos # (Auto) 0.1 Baso # (Auto) 0.0 Abs Immat Gran (auto) 0.05 H Imm/Tot Granulo (auto) 0.5 Sodium Potassium Chloride Carbon Dioxide Anion Gap BUN Creatinine Est GFR ( Amer) Est GFR (Non-Af Amer) BUN/Creatinine Ratio Glucose Calcium Total Bilirubin AST ALT Alkaline Phosphatase Total Protein Albumin Globulin Albumin/Globulin Ratio POC Glucose 133 H 181 H Blood Type O Negative Antibody Screen Negative Crossmatch See Detail Urinary Catheter Management Urinary Catheter Management Urethral: Cath placed during this visit: yes Urethral indwelling: Yes Reason for continuing: measure accurate output Insertion date: 08/30/22 Insertion time: 17:30
[2022-09-01] MEDS: SODIUM CHLORIDE 0.45 % 1,000 ML 75 ML IV (15:56)
[2022-09-01 15:59] LABS: Glucometer 198 mg/dL (74-106)
[2022-09-01] MEDS: INSULIN ASPART 300 UNIT/3 ML PEN SUBQ ×2 (15:59→22:28)
--- NOTE | 2022-09-01 16:22 | SWNOTE1 ---
KIRSTIN spoke with Dang at [facility] and they needed UA results and also wanted to know if pt had home bipap/cpap. SW to check and sent UA results.
[2022-09-01 16:28] LABS: Basophils Percent Auto 0.1 % (0.2-2.0); Eosinophils Percent Auto 0.4 % (0.9-7.0); Hemoglobin 8.2 g/dL (12.0-16.0); Immature Granulocytes Abs Auto 0.06 10^3/uL (0.00-0.03); Immature Granulocytes Pct Auto 0.6 % (0.0-0.5); Lymphocytes Absolute Auto 0.3 10^3/uL (1.2-3.8); Mean Corpuscular HGB Conc 28.3 g/dL (29.9-35.2); Mean Corpuscular Hemoglobin 24.6 pg (26.7-34.0); Mean Corpuscular Volume 87.1 fL (81.0-99.0); Monocytes Percent Auto 10.3 % (1.7-12.0); Neutrophils Absolute Auto 8.3 10^3/uL (1.4-6.5); Neutrophils Percent Auto 85.6 % (43.0-75.0); Platelet Count 196 10^3/uL (150-450); Red Blood Count 3.33 10^6/uL (4.20-5.40); Red Cell Distribution Width 16.5 % (11.0-15.0); White Blood Count 9.7 10^3/uL (4.0-11.0)
[2022-09-01] MEDS: HYDROCODONE/ACETAMINOPHEN 5-325 MG TABLET 2 TAB PO (20:11)
[2022-09-01] MEDS: LINEZOLID IN DEXTROSE 5% 600 MG/300 ML PIGGYBACK 300 MG IV (22:12)
[2022-09-01 22:28] LABS: Glucometer 143 mg/dL (74-106)
[2022-09-02] VITALS (29 sets, daily range): BP systolic 107–133; BP diastolic 59–75; PULSE 62–94; RESP 10–18; TEMP 36.7–37.1; O2SAT 92–100
[2022-09-02] MEDS: IPRATROPIUM/ALBUTEROL SULFATE 3 ML AMPUL.NEB IH ×4 (04:07→22:18)
[2022-09-02 04:25] LABS: Basophils Percent Auto 0.2 % (0.2-2.0); Eosinophils Absolute Auto 0.1 10^3/uL (0.0-0.7); Eosinophils Percent Auto 0.8 % (0.9-7.0); Hematocrit 29.4 % (36.0-48.0); Hemoglobin 8.3 g/dL (12.0-16.0); Immature Granulocytes Abs Auto 0.06 10^3/uL (0.00-0.03); Immature Granulocytes Pct Auto 0.6 % (0.0-0.5); Lymphocytes Absolute Auto 0.3 10^3/uL (1.2-3.8); Lymphocytes Percent Auto 3.1 % (20.5-60.0); Mean Corpuscular HGB Conc 28.2 g/dL (29.9-35.2); Mean Corpuscular Volume 88.6 fL (81.0-99.0); Mean Platelet Volume 10.6 fL (9.5-13.5); Monocytes Absolute Auto 1.2 10^3/uL (0.3-0.8); Monocytes Percent Auto 11.5 % (1.7-12.0); Neutrophils Absolute Auto 8.3 10^3/uL (1.4-6.5); Neutrophils Percent Auto 83.8 % (43.0-75.0); Platelet Count 203 10^3/uL (150-450); Red Blood Count 3.32 10^6/uL (4.20-5.40); Red Cell Distribution Width 16.9 % (11.0-15.0)
[2022-09-02 04:45] LABS: Alanine Aminotransferase 30 U/L (14-59); Albumin Globulin Ratio 0.6; Albumin Level 2.3 g/dL (3.4-5.0); Alkaline Phosphatase 103 U/L (46-116); Anion Gap 5.4; Aspartate Amino Transferase 31 U/L (15-37); BUN Creatinine Ratio 14.9; Bilirubin Total 0.5 mg/dL (0.2-1.0); Calcium 8.6 mg/dL (8.5-10.1); Carbon Dioxide 37.7 mmol/L (21.0-32.0); Chloride 101 mmol/L (98-107); Estimated GFR (African America >60 (>=60); Estimated GFR (Non-African Ame >60 (>=60); Globulin 3.8 g/dL; Glucose 134 mg/dL (74-106); Potassium 4.1 mmol/L (3.5-5.1); Sodium 140 mmol/L (136-145); Total Protein 6.1 g/dL (6.4-8.2)
[2022-09-02] MEDS: SODIUM CHLORIDE 0.45 % 1,000 ML 75 ML IV ×2 (06:15→18:04)
[2022-09-02] MEDS: ACETAMINOPHEN 500 MG TABLET 1000 MG PO (06:29)
[2022-09-02 07:12] LABS: Glucometer 151 mg/dL (74-106)
[2022-09-02] MEDS: INSULIN ASPART 300 UNIT/3 ML PEN SUBQ ×3 (07:56→15:51)
[2022-09-02] MEDS: PREDNISONE 5 MG TABLET PO (08:00)
[2022-09-02] MEDS: OXYBUTYNIN chloride 5 MG TABLET PO (08:00)
[2022-09-02] MEDS: ENOXAPARIN SODIUM 60 MG/0.6 ML SYRINGE SUBQ ×2 (08:00→21:43)
[2022-09-02] MEDS: PROCHLORPERAZINE 10 MG/2 ML VIAL IV ×2 (09:04→19:42)
[2022-09-02] MEDS: CITALOPRAM HYDROBROMIDE 20 MG TABLET 40 MG PO (10:56)
[2022-09-02] MEDS: BACLOFEN 10 MG TABLET 20 MG PO (10:56)
[2022-09-02] MEDS: CEFTRIAXONE 2,000 MG in 0.9 % SODIUM CHLORIDE 100 ML 200 MG IV (11:01)
[2022-09-02 11:02] LABS: Glucometer 141 mg/dL (74-106)
--- NOTE | 2022-09-02 11:18 | DIETREC ---
Nutrition Recommendations: 1. Add Ensure HP once daily. 2. Add Prostat 30 mL BID. Reviewed with
--- NOTE | 2022-09-02 11:32 | PM.IMPN1 ---
Progress Note: A&P Assessment and Plan (1) Sepsis: Assessment and Plan: Stable hemodynamics. On gentle IV hydration now. Qualifiers: Sepsis acute organ dysfunction status: without acute organ dysfunction Sepsis type: Streptococcus group B Qualified Code(s): A40.1 - Sepsis due to streptococcus, group B (2) Gram-positive bacteremia: Assessment and Plan: Step Aglactiae in blood. Senstive to Rocephin. D/c zyvox (3) Cellulitis: Onset Date: ~08/2022 Assessment and Plan: From chronic lymphedema, skin break down. Wound care, IV abx as outline above Qualifiers: Site of cellulitis: extremity Site of cellulitis of extremity: lower extremity Laterality: unspecified laterality Qualified Code(s): L03.119 - Cellulitis of unspecified part of limb (4) Lymphedema associated with obesity: Assessment and Plan: Outpatient f/u with Lymphedema clinic possibly could help her in [facility] (5) COPD (chronic obstructive pulmonary disease): Assessment and Plan: stable. No wheezing. No resp symptoms Qualifiers: COPD type: unspecified COPD Qualified Code(s): J44.9 - Chronic obstructive pulmonary disease, unspecified (6) Chronic respiratory failure requiring use of nocturnal bilevel positive airway pressure (BPAP) by mask: Assessment and Plan: BIPAP qhs and as needed (7) Acute and chronic respiratory failure with hypoxia: Assessment and Plan: resolved. likely from sepsis. Monitor. (8) Anemia: Assessment and Plan: Chronic anemia at baseline. Stable. Received one unit PRBC Qualifiers: Anemia type: unspecified type Qualified Code(s): D64.9 - Anemia, unspecified (9) Chronic pain: Assessment and Plan: From sepsis, obesity. Increase Hydrocodone dose for improved pain control Internal Medicine - PN: Subj Subjective Interval history: Seen and examined. More awake and alert. BP is stable. Exam Constitutional Vital Signs - 24 hr 09/01/22 11:47 09/01/22 12:53 09/01/22 13:05 Temperature 98.7 F 98.4 F Pulse Rate 91 H 88 Pulse Rate [Monitor] Respiratory Rate 16 16 Blood Pressure 118/60 101/55 L Pulse Oximetry 94 L Oxygen Delivery Method Nasal Cannula Nasal Cannula Oxygen Delivery Flow Rate 3 3 09/01/22 13:27 09/01/22 13:50 09/01/22 14:02 Temperature 98.8 F 98.6 F Pulse Rate 92 H 94 H 92 H Pulse Rate [Monitor] Respiratory Rate 16 16 Blood Pressure 111/71 113/63 Pulse Oximetry 95 Oxygen Delivery Method Nasal Cannula Nasal Cannula Oxygen Delivery Flow Rate 3 09/01/22 14:17 09/01/22 14:32 09/01/22 15:20 Temperature 98.7 F 98.9 F 98.7 F Pulse Rate 92 H 90 96 H Pulse Rate [Monitor] Respiratory Rate 17 17 22 Blood Pressure 113/63 118/55 L 133/61 H Pulse Oximetry 95 95 Oxygen Delivery Method Nasal Cannula Nasal Cannula Nasal Cannula Oxygen Delivery Flow Rate 3 3 3 09/01/22 15:00 09/01/22 15:31 09/01/22 12:48 Temperature Pulse Rate 91 H 94 H Pulse Rate [Monitor] Respiratory Rate 22 10 L Blood Pressure 118/60 Pulse Oximetry 94 L Oxygen Delivery Method Oxygen Delivery Flow Rate 09/01/22 13:05 09/01/22 13:50 09/01/22 14:02 Temperature Pulse Rate 94 H 88 90 Pulse Rate [Monitor] Respiratory Rate 11 L 11 L 12 Blood Pressure 101/55 L 111/71 113/63 Pulse Oximetry 95 95 95 Oxygen Delivery Method Oxygen Delivery Flow Rate 09/01/22 14:32 09/01/22 15:18 09/01/22 15:54 Temperature 98.7 F Pulse Rate 94 H 89 91 H Pulse Rate [Monitor] Respiratory Rate 15 12 14 Blood Pressure 118/55 L 133/61 H 108/58 L Pulse Oximetry 95 96 96 Oxygen Delivery Method Nasal Cannula Oxygen Delivery Flow Rate 3 09/01/22 16:12 09/01/22 15:18 09/01/22 15:54 Temperature Pulse Rate 91 H 90 Pulse Rate [Monitor] Respiratory Rate 18 14 Blood Pressure 133/61 H 108/58 L Pulse Oximetry 96 96 96 Oxygen Delivery Method Nasal Cannula Oxygen Delivery Flow Rate 3 09/01/22 15:54 09/01/22 15:54 09/01/22 17:01 Temperature Pulse Rate 92 H 91 H 88 Pulse Rate [Monitor] Respiratory Rate 13 15 12 Blood Pressure 108/58 L 108/58 L 115/56 L Pulse Oximetry 96 94 L 97 Oxygen Delivery Method Oxygen Delivery Flow Rate 09/01/22 18:07 09/01/22 17:01 09/01/22 19:58 Temperature 98.5 F Pulse Rate 87 88 90 Pulse Rate [Monitor] Respiratory Rate 27 H 12 Blood Pressure 115/56 L 114/57 L Pulse Oximetry 99 87 L Oxygen Delivery Method Oxygen Delivery Flow Rate 3 09/01/22 23:16 09/01/22 23:16 09/02/22 00:05 Temperature Pulse Rate 86 Pulse Rate [Monitor] 85 Respiratory Rate 16 18 Blood Pressure Pulse Oximetry 90 L 90 L Oxygen Delivery Method Nasal Cannula Nasal Cannula Oxygen Delivery Flow Rate 3 3 09/01/22 19:58 09/02/22 00:04 09/02/22 04:06 Temperature 98.5 F Pulse Rate 86 86 86 Pulse Rate [Monitor] Respiratory Rate 12 10 L 18 Blood Pressure 114/57 L 122/67 H Pulse Oximetry 93 L 92 L 96 Oxygen Delivery Method Nasal Cannula Oxygen Delivery Flow Rate 3 3 09/02/22 04:00 09/02/22 00:04 09/02/22 04:05 Temperature 98.5 F 98.0 F Pulse Rate 86 90 Pulse Rate [Monitor] 62 Respiratory Rate 15 12 Blood Pressure 122/67 H 118/66 Pulse Oximetry 92 L Oxygen Delivery Method Oxygen Delivery Flow Rate 09/01/22 20:00 09/01/22 22:00 09/02/22 00:00 Temperature Pulse Rate 82 80 78 Pulse Rate [Monitor] Respiratory Rate Blood Pressure Pulse Oximetry Oxygen Delivery Method Oxygen Delivery Flow Rate 09/02/22 02:00 09/02/22 06:36 09/02/22 04:00 Temperature Pulse Rate 78 85 85 Pulse Rate [Monitor] Respiratory Rate Blood Pressure Pulse Oximetry Oxygen Delivery Method Oxygen Delivery Flow Rate 09/02/22 07:28 09/02/22 07:29 09/02/22 04:05 Temperature 98.7 F Pulse Rate 86 86 Pulse Rate [Monitor] Respiratory Rate 10 L Blood Pressure 118/66 Pulse Oximetry 94 L Oxygen Delivery Method Oxygen Delivery Flow Rate 09/02/22 07:09 09/02/22 09:00 09/02/22 07:09 Temperature 98.7 F Pulse Rate 85 85 85 Pulse Rate [Monitor] Respiratory Rate 18 14 Blood Pressure 131/59 H 131/59 H Pulse Oximetry 95 96 Oxygen Delivery Method Oxygen Delivery Flow Rate 09/02/22 09:06 09/02/22 09:07 09/02/22 11:03 Temperature Pulse Rate 88 80 Pulse Rate [Monitor] Respiratory Rate 15 10 L Blood Pressure 107/59 L Pulse Oximetry 94 L 93 L 96 Oxygen Delivery Method Nasal Cannula Oxygen Delivery Flow Rate 3 Documenting provider has reviewed patient's vital signs: yes Common normals: no apparent distress General appearance: cooperative Nutritional appearance: obese HENMT Common normals: normocephalic and head/scalp atraumatic Eye Common normals: conjunctivae normal and no scleral icterus Respiratory Common normals: normal respiratory effort, no use of accessory muscles and clear to auscultation bilaterally (diminished air entry) Cardio Common normals: no JVD, S1 normal heart sound, S2 normal heart sound and no murmurs GI Common normals: Normal to inspection, nondistended, normoactive bowel sounds present, no hepatosplenomegaly and no masses Extremity Other: B/l LE edema, chronic lymphedema with erythema,macerated skin innner thigh region that seems c/w cellulitis Neuro Common normals: oriented x3, no focal motor deficits and no sensory deficits noted Psych Common normals: cooperative, denies homicidal ideation and denies suicidal ideation Internal Medicine - PN: Obj Da Labs Labs: Laboratory Results - last 24 hr 09/01/22 09/01/22 09/01/22 09:40 15:56 16:21 WBC 9.7 RBC 3.33 L Hgb 8.2 L Hct 29.0 L MCV 87.1 MCH 24.6 L MCHC 28.3 L RDW 16.5 H Plt Count 196 MPV 10.0 Neut % (Auto) 85.6 H Lymph % (Auto) 3.0 L [place] % (Auto) 10.3 Eos % (Auto) 0.4 L Baso % (Auto) 0.1 L Neut # (Auto) 8.3 H Lymph # (Auto) 0.3 L [place] # (Auto) 1.0 H Eos # (Auto) 0.0 Baso # (Auto) 0.0 Abs Immat Gran (auto) 0.06 H Imm/Tot Granulo (auto) 0.6 H Sodium Potassium Chloride Carbon Dioxide Anion Gap BUN Creatinine Est GFR ( Amer) Est GFR (Non-Af Amer) BUN/Creatinine Ratio Glucose Calcium Total Bilirubin AST ALT Alkaline Phosphatase Total Protein Albumin Globulin Albumin/Globulin Ratio POC Glucose 198 H Blood Type O Negative Antibody Screen Negative Crossmatch See Detail 0609/02/22 09/02/22 22:27 04:00 07:10 WBC 10.0 RBC 3.32 L Hgb 8.3 L Hct 29.4 L MCV 88.6 MCH 25.0 L MCHC 28.2 L RDW 16.9 H Plt Count 203 MPV 10.6 Neut % (Auto) 83.8 H Lymph % (Auto) 3.1 L [place] % (Auto) 11.5 Eos % (Auto) 0.8 L Baso % (Auto) 0.2 Neut # (Auto) 8.3 H Lymph # (Auto) 0.3 L [place] # (Auto) 1.2 H Eos # (Auto) 0.1 Baso # (Auto) 0.0 Abs Immat Gran (auto) 0.06 H Imm/Tot Granulo (auto) 0.6 H Sodium 140 Potassium 4.1 Chloride 101 Carbon Dioxide 37.7 H Anion Gap 5.4 BUN 10.0 Creatinine 0.67 Est GFR ( Amer) >60 Est GFR (Non-Af Amer) >60 BUN/Creatinine Ratio 14.9 Glucose 134 H Calcium 8.6 Total Bilirubin 0.5 AST 31 ALT 30 Alkaline Phosphatase 103 Total Protein 6.1 L Albumin 2.3 L Globulin 3.8 Albumin/Globulin Ratio 0.6 POC Glucose 143 H 151 H Blood Type Antibody Screen Crossmatch 09/02/22 10:54 WBC RBC Hgb Hct MCV MCH MCHC RDW Plt Count MPV Neut % (Auto) Lymph % (Auto) [place] % (Auto) Eos % (Auto) Baso % (Auto) Neut # (Auto) Lymph # (Auto) [place] # (Auto) Eos # (Auto) Baso # (Auto) Abs Immat Gran (auto) Imm/Tot Granulo (auto) Sodium Potassium Chloride Carbon Dioxide Anion Gap BUN Creatinine Est GFR ( Amer) Est GFR (Non-Af Amer) BUN/Creatinine Ratio Glucose Calcium Total Bilirubin AST ALT Alkaline Phosphatase Total Protein Albumin Globulin Albumin/Globulin Ratio POC Glucose 141 H Blood Type Antibody Screen Crossmatch Urinary Catheter Management Urinary Catheter Management Urethral: Cath placed during this visit: yes Urethral indwelling: Yes Reason for continuing: measure accurate output Insertion date: 08/30/22 Insertion time: 17:30
--- NOTE | 2022-09-02 11:58 | SWNOTE1 ---
KIRSTIN called and spoke with Dang at [facility] and she wanted to know if pt had history of MRDO, SW spoke with nursing and case management and no history. They also wanted progress note from pulmonology, but they were not consulted. KIRSTIN sent over updates.
--- NOTE | 2022-09-02 12:13 | CM.NOTE ---
Rounds made with Dr. Woo, no discharge today. Pt will go skilled at [facility] at discharge.
--- NOTE | 2022-09-02 13:50 | REH.PTDLY ---
Physical Therapy Daily Note PT Daily Note/Assess Start: 09/02/22 13:45 Freq: Status: Active Protocol: Document 09/02/22 13:25 KSTEINLE (Rec: 09/02/22 13:50 KSTEINLE Laptop) Physical Therapy Daily Note/Assessment Time In 13:05 Time Out 13:25 Pain Level 7 Pain Level 7 Subjective Pt states extremities are sore and has a headache still. Just finished lunch, pt didn't eat much. Therapeutic Exercise Minutes (minutes) 19 Therapeutic Exercise Units 2 Therapeutic Exercise Treatment Instructed in B LE supine exs 8-10x ea within small range including AP, QS, GS, AA heel slides, AA hip abd, and AA SLR . Utilizing red theraband instructed pt in DF and PF to Richard feet. B UE bicep curl, abd , and retraction 10x ea with red theraband for improved strength. Total Therapy Minutes 19 Total Physical Therapy Units 2 Daily Note Summary Focused on strengthening exs today, pt has difficulty moving LEs. Sitting bedside not an option at this time for safety reasons.
--- NOTE | 2022-09-02 15:41 | SWNOTE1 ---
KIRSTIN received call back from [facility] and they wanted SW to let pt know that on day 21 she would have a co-pay for $196.00. KIRSTIN went in to explain to pt, she voiced understanding. Pt and made too much to qualify for medicaid. KIRSTIN updated Dang at [facility]. KIRSTIN received call back from Dang and the branch office administrator would like to come meet pt before they make final decision. He will be coming tomorrow morning. KIRSTIN to notify nursing and pt.
[2022-09-02 15:56] LABS: Glucometer 171 mg/dL (74-106)
[2022-09-02] MEDS: HYDROCODONE/ACETAMINOPHEN 5-325 MG TABLET 2 TAB PO (19:42)
[2022-09-02 21:46] LABS: Glucometer 115 mg/dL (74-106)
--- NOTE | 2022-09-02 23:36 | PC.NURSE ---
Patient provided personal skin care and changing of disposable chux pads due to saturation with serous liquid weeping from bilateral legs and hip regions. Skin cleansed, patted dry, Nystatin powder applied between skin folds for protection. Maxorb dressing applied to left thigh area with weeping wound. Clean Disposable Chux placed underneath patient lower extremities. Clean folded pillow cases placed between patient folds of breast and abdomen to protect skin from moisture.
[2022-09-03] VITALS (35 sets, daily range): BP systolic 101–147; BP diastolic 61–89; PULSE 58–99; RESP 12–22; TEMP 36.4–37.2; O2SAT 82–98
--- NOTE | 2022-09-03 01:12 | PC.NURSE ---
Bariatric Bed remains in use with Air Flow mattress.
[2022-09-03] MEDS: IPRATROPIUM/ALBUTEROL SULFATE 3 ML AMPUL.NEB IH ×4 (04:10→23:53)
[2022-09-03] MEDS: ACETAMINOPHEN 500 MG TABLET 1000 MG PO (04:27)
[2022-09-03] MEDS: PROCHLORPERAZINE 10 MG/2 ML VIAL IV ×3 (04:27→19:40)
[2022-09-03 06:37] LABS: Basophils Percent Auto 0.2 % (0.2-2.0); Eosinophils Absolute Auto 0.1 10^3/uL (0.0-0.7); Eosinophils Percent Auto 1.4 % (0.9-7.0); Hematocrit 29.7 % (36.0-48.0); Hemoglobin 8.2 g/dL (12.0-16.0); Immature Granulocytes Abs Auto 0.09 10^3/uL (0.00-0.03); Immature Granulocytes Pct Auto 0.9 % (0.0-0.5); Lymphocytes Absolute Auto 0.4 10^3/uL (1.2-3.8); Mean Corpuscular HGB Conc 27.6 g/dL (29.9-35.2); Mean Corpuscular Hemoglobin 24.4 pg (26.7-34.0); Mean Corpuscular Volume 88.4 fL (81.0-99.0); Mean Platelet Volume 10.4 fL (9.5-13.5); Monocytes Absolute Auto 1.1 10^3/uL (0.3-0.8); Monocytes Percent Auto 11.1 % (1.7-12.0); Neutrophils Absolute Auto 7.9 10^3/uL (1.4-6.5); Neutrophils Percent Auto 82.4 % (43.0-75.0); Platelet Count 221 10^3/uL (150-450); Red Blood Count 3.36 10^6/uL (4.20-5.40); Red Cell Distribution Width 17.2 % (11.0-15.0); White Blood Count 9.6 10^3/uL (4.0-11.0)
[2022-09-03] MEDS: SODIUM CHLORIDE 0.45 % 1,000 ML 75 ML IV (07:35)
[2022-09-03 07:41] LABS: Glucometer 130 mg/dL (74-106)
[2022-09-03 09:00] LABS: Alanine Aminotransferase 27 U/L (14-59); Albumin Globulin Ratio 0.6; Albumin Level 2.3 g/dL (3.4-5.0); Alkaline Phosphatase 116 U/L (46-116); Aspartate Amino Transferase 18 U/L (15-37); BUN Creatinine Ratio 13.4; Bilirubin Total 0.4 mg/dL (0.2-1.0); Calcium 8.7 mg/dL (8.5-10.1); Carbon Dioxide 39.3 mmol/L (21.0-32.0); Chloride 103 mmol/L (98-107); Estimated GFR (African America >60 (>=60); Estimated GFR (Non-African Ame >60 (>=60); Globulin 3.9 g/dL; Glucose 123 mg/dL (74-106); Potassium 4.3 mmol/L (3.5-5.1); Sodium 141 mmol/L (136-145); Total Protein 6.2 g/dL (6.4-8.2)
[2022-09-03] MEDS: ENOXAPARIN SODIUM 60 MG/0.6 ML SYRINGE SUBQ ×2 (09:20→22:08)
[2022-09-03] MEDS: BACLOFEN 10 MG TABLET 20 MG PO (09:21)
[2022-09-03] MEDS: CITALOPRAM HYDROBROMIDE 20 MG TABLET 40 MG PO (09:21)
[2022-09-03] MEDS: PREDNISONE 5 MG TABLET PO (09:22)
[2022-09-03] MEDS: OXYBUTYNIN chloride 5 MG TABLET PO (09:22)
--- NOTE | 2022-09-03 10:39 | REH.PTDLY ---
Physical Therapy Daily Note PT Daily Note/Assess Start: 09/02/22 13:45 Freq: Status: Active Protocol: Document 09/03/22 09:15 YANIRA (Rec: 09/03/22 10:39 [id number] Physical Therapy Daily Note/Assessment Time In 09:00 Time Out 09:14 Pain N/A Pain N/A Subjective Pt does not rate pain, upset upon arrival because she cannot remember how the Lord's prayer goes. Doesn't understand why she can't remember this. Pt is able to remember once it is recited together. Therapeutic Exercise Minutes (minutes) 10 Therapeutic Exercise Units 1 Therapeutic Exercise Treatment Instructed in B LE supine exs AROM AP, AA hip abd slides and SLR 10x ea. Red theraband DF/ PF 10x ea Therapeutic Activity Minutes (minutes) 6 Therapeutic Activity Comments Max A with long sitting in bed . Requires CAR C[employer]IZER for pt to help pull herself up into seated position. Performed 2x, second time had L hand on bed rail to help pull self up. Cues for pt to reach overhead for bed rail to help pull herself up in bed, Max Ax3 Total Therapy Minutes 16 Total Physical Therapy Units 1 Daily Note Summary Pt continues to require assistance with all activity, limited mobility noted. Will require SNF stay at [place] for improved mobility and strength .
--- NOTE | 2022-09-03 11:05 | RESP.RT ---
Pt wears 2-3L at home
[2022-09-03] MEDS: HYDROCODONE/ACETAMINOPHEN 5-325 MG TABLET 2 TAB PO ×3 (11:27→22:07)
[2022-09-03 11:56] LABS: Glucometer 143 mg/dL (74-106)
[2022-09-03] MEDS: CEFTRIAXONE 2,000 MG in 0.9 % SODIUM CHLORIDE 100 ML 200 MG IV (11:56)
--- NOTE | 2022-09-03 12:35 | PM.IMPN1 ---
Progress Note: A&P Assessment and Plan (1) Sepsis: Assessment and Plan: Stable hemodynamics. Stop IVF Qualifiers: Sepsis acute organ dysfunction status: without acute organ dysfunction Sepsis type: Streptococcus group B Qualified Code(s): A40.1 - Sepsis due to streptococcus, group B (2) Gram-positive bacteremia: Assessment and Plan: Step Aglactiae in blood. Senstive to Rocephin. Repeat blood cx drawn on 09/02/22 ECHO negative for valvular vegetation (3) Cellulitis: Onset Date: ~08/2022 Assessment and Plan: From chronic lymphedema, skin break down. Wound care, IV abx as outline above Qualifiers: Site of cellulitis: extremity Site of cellulitis of extremity: lower extremity Laterality: unspecified laterality Qualified Code(s): L03.119 - Cellulitis of unspecified part of limb (4) Lymphedema associated with obesity: Assessment and Plan: Outpatient f/u with Lymphedema clinic possibly could help her in senior care (5) COPD (chronic obstructive pulmonary disease): Assessment and Plan: stable. No wheezing. No resp symptoms Qualifiers: COPD type: unspecified COPD Qualified Code(s): J44.9 - Chronic obstructive pulmonary disease, unspecified (6) Chronic respiratory failure requiring use of nocturnal bilevel positive airway pressure (BPAP) by mask: Assessment and Plan: BIPAP qhs and as needed (7) Acute and chronic respiratory failure with hypoxia: Assessment and Plan: resolved. likely from sepsis. Monitor. (8) Anemia: Assessment and Plan: Chronic anemia at baseline. Stable. Received one unit PRBC during hospital stay, Stable since then Qualifiers: Anemia type: unspecified type Qualified Code(s): D64.9 - Anemia, unspecified (9) Chronic pain: Assessment and Plan: Reasonably controlled. Internal Medicine - PN: Subj Subjective Interval history: Seen and examined. No overnight events. Doing well Exam Constitutional Vital Signs - 24 hr 09/02/22 13:00 09/02/22 15:00 09/02/22 15:56 Temperature Pulse Rate 83 82 Pulse Rate [Monitor] Respiratory Rate Blood Pressure Pulse Oximetry 97 Oxygen Delivery Method Nasal Cannula Oxygen Delivery Flow Rate 3 09/02/22 16:00 09/02/22 15:52 09/02/22 17:00 Temperature 98.8 F Pulse Rate 87 85 Pulse Rate [Monitor] Respiratory Rate 14 Blood Pressure 117/70 Pulse Oximetry 100 Oxygen Delivery Method Oxygen Delivery Flow Rate 3 09/02/22 19:00 09/02/22 19:00 09/02/22 19:29 Temperature 98.5 F Pulse Rate 88 92 H Pulse Rate [Monitor] 94 H Respiratory Rate 16 14 Blood Pressure 125/75 H Pulse Oximetry 94 L Oxygen Delivery Method Oxygen Delivery Flow Rate 3 09/02/22 22:18 09/02/22 22:18 09/02/22 22:00 Temperature Pulse Rate 87 90 Pulse Rate [Monitor] Respiratory Rate 18 Blood Pressure Pulse Oximetry 95 95 Oxygen Delivery Method Nasal Cannula Oxygen Delivery Flow Rate 3 09/02/22 22:15 09/03/22 00:00 09/03/22 00:00 Temperature Pulse Rate 89 88 Pulse Rate [Monitor] 86 Respiratory Rate 18 Blood Pressure Pulse Oximetry 94 L 90 L Oxygen Delivery Method Oxygen Delivery Flow Rate 09/02/22 19:29 09/03/22 00:28 09/03/22 02:00 Temperature Pulse Rate 88 88 86 Pulse Rate [Monitor] Respiratory Rate 16 13 Blood Pressure 125/75 H 133/61 H Pulse Oximetry 94 L 93 L 95 Oxygen Delivery Method Oxygen Delivery Flow Rate 09/03/22 04:10 09/03/22 04:00 09/03/22 04:00 Temperature Pulse Rate 88 88 Pulse Rate [Monitor] 58 L Respiratory Rate 18 16 Blood Pressure Pulse Oximetry 95 Oxygen Delivery Method Nasal Cannula Oxygen Delivery Flow Rate 3 09/03/22 00:28 09/03/22 04:32 09/03/22 06:00 Temperature 98.0 F 97.5 F L Pulse Rate 93 H 88 93 H Pulse Rate [Monitor] Respiratory Rate 14 13 Blood Pressure 133/61 H 101/67 Pulse Oximetry 96 95 96 Oxygen Delivery Method Oxygen Delivery Flow Rate 3 3 09/03/22 07:45 09/03/22 08:08 09/03/22 08:08 Temperature Pulse Rate 85 87 Pulse Rate [Monitor] 84 Respiratory Rate 18 Blood Pressure Pulse Oximetry 98 Oxygen Delivery Method Oxygen Delivery Flow Rate 09/03/22 08:08 09/03/22 09:41 09/03/22 11:02 Temperature 98.4 F Pulse Rate 85 88 Pulse Rate [Monitor] Respiratory Rate 18 Blood Pressure 101/64 Pulse Oximetry 98 90 L 94 L Oxygen Delivery Method Nasal Cannula Oxygen Delivery Flow Rate 3,101 3 09/03/22 11:36 09/03/22 12:11 09/03/22 12:17 Temperature Pulse Rate 84 68 Pulse Rate [Monitor] 84 Respiratory Rate 18 Blood Pressure Pulse Oximetry 93 L 94 L Oxygen Delivery Method Oxygen Delivery Flow Rate 09/03/22 04:32 09/03/22 11:56 Temperature Pulse Rate 89 89 Pulse Rate [Monitor] Respiratory Rate 16 15 Blood Pressure 101/67 123/70 H Pulse Oximetry 95 88 L Oxygen Delivery Method Oxygen Delivery Flow Rate Documenting provider has reviewed patient's vital signs: yes Common normals: no apparent distress General appearance: cooperative Nutritional appearance: obese [facility] Common normals: normocephalic and head/scalp atraumatic Eye Common normals: conjunctivae normal and no scleral icterus Respiratory Common normals: normal respiratory effort, no use of accessory muscles and clear to auscultation bilaterally (diminished air entry) Cardio Common normals: no JVD, S1 normal heart sound, S2 normal heart sound and no murmurs GI Common normals: Normal to inspection, nondistended, normoactive bowel sounds present, no hepatosplenomegaly and no masses Extremity Other: B/l LE edema, chronic lymphedema with erythema,macerated skin innner thigh region that seems c/w cellulitis - erythema is improving Neuro Common normals: oriented x3, no focal motor deficits and no sensory deficits noted Psych Common normals: cooperative, denies homicidal ideation and denies suicidal ideation Internal Medicine - PN: Obj Da Labs Labs: Laboratory Results - last 24 hr 09/02/22 09/02/22 09/03/22 15:50 21:45 06:14 WBC 9.6 RBC 3.36 L Hgb 8.2 L Hct 29.7 L MCV 88.4 MCH 24.4 L MCHC 27.6 L RDW 17.2 H Plt Count 221 MPV 10.4 Neut % (Auto) 82.4 H Lymph % (Auto) 4.0 L [place] % (Auto) 11.1 Eos % (Auto) 1.4 Baso % (Auto) 0.2 Neut # (Auto) 7.9 H Lymph # (Auto) 0.4 L [place] # (Auto) 1.1 H Eos # (Auto) 0.1 Baso # (Auto) 0.0 Abs Immat Gran (auto) 0.09 H Imm/Tot Granulo (auto) 0.9 H Sodium 141 Potassium 4.3 Chloride 103 Carbon Dioxide 39.3 H Anion Gap 3.0 BUN 9.0 Creatinine 0.67 Est GFR ( Amer) >60 Est GFR (Non-Af Amer) >60 BUN/Creatinine Ratio 13.4 Glucose 123 H Calcium 8.7 Total Bilirubin 0.4 AST 18 ALT 27 Alkaline Phosphatase 116 Total Protein 6.2 L Albumin 2.3 L Globulin 3.9 Albumin/Globulin Ratio 0.6 POC Glucose 171 H 115 H 09/03/22 09/03/22 07:40 11:54 WBC RBC Hgb Hct MCV MCH MCHC RDW Plt Count MPV Neut % (Auto) Lymph % (Auto) Steele % (Auto) Eos % (Auto) Baso % (Auto) Neut # (Auto) Lymph # (Auto) [place] # (Auto) Eos # (Auto) Baso # (Auto) Abs Immat Gran (auto) Imm/Tot Granulo (auto) Sodium Potassium Chloride Carbon Dioxide Anion Gap BUN Creatinine Est GFR ( Amer) Est GFR (Non-Af Amer) BUN/Creatinine Ratio Glucose Calcium Total Bilirubin AST ALT Alkaline Phosphatase Total Protein Albumin Globulin Albumin/Globulin Ratio POC Glucose 130 H 143 H Urinary Catheter Management Urinary Catheter Management Urethral: Cath placed during this visit: yes Urethral indwelling: Yes Reason for continuing: measure accurate output Insertion date: 08/30/22 Insertion time: 17:30
--- NOTE | 2022-09-03 12:49 | CM.NOTE ---
Rounds made with Dr. Woo, gooditing [facility] to evaluate pt for skilled therapy today. Possible discharge tomorrow if accepted for skilled therapy.
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
--- NOTE | 2022-09-03 14:36 | SWNOTE1 ---
SW spoke with pt and her . SW let them know as of now [facility] is stating they need 79 days up front of her co-payment. SW let them know we requested to speak with administration and waiting for a call back. SW also reached out to [facility] in [place] in regards to the weight limit. It is 500 pounds, but they can review referral and it will depend on pt's mobility. Pt and alright with SW sending referral. Referral sent to [place]. SW also let pt and know there is a possibility both facilities may not be able to accommodate. SW let them know there are bariatric facilities further away, [facility], [place]. Pt stated she would go home with more care.
--- NOTE | 2022-09-03 14:49 | SWNOTE1 ---
KIRSTIN called and spoke with Kayla again at [facility] and she has not spoke to the home health administrator, she was pulled away at care conferences. She will call administration now and get back to me.
[2022-09-03] MEDS: ALPRAZOLAM 0.5 MG TABLET PO ×2 (16:19→19:44)
[2022-09-03 16:23] LABS: Glucometer 157 mg/dL (74-106)
[2022-09-03 22:06] LABS: Glucometer 118 mg/dL (74-106)
[2022-09-04] VITALS (23 sets, daily range): BP systolic 101–154; BP diastolic 57–86; PULSE 75–95; RESP 12–20; TEMP 36.5–37; O2SAT 86–97; BMI 89.3
[2022-09-04] MEDS: IPRATROPIUM/ALBUTEROL SULFATE 3 ML AMPUL.NEB IH ×4 (04:07→22:27)
[2022-09-04 05:07] LABS: Basophils Percent Auto 0.1 % (0.2-2.0); Eosinophils Absolute Auto 0.2 10^3/uL (0.0-0.7); Eosinophils Percent Auto 2.6 % (0.9-7.0); Hemoglobin 8.3 g/dL (12.0-16.0); Immature Granulocytes Abs Auto 0.08 10^3/uL (0.00-0.03); Immature Granulocytes Pct Auto 1.1 % (0.0-0.5); Lymphocytes Absolute Auto 0.6 10^3/uL (1.2-3.8); Lymphocytes Percent Auto 7.8 % (20.5-60.0); Mean Corpuscular HGB Conc 27.7 g/dL (29.9-35.2); Mean Corpuscular Hemoglobin 24.6 pg (26.7-34.0); Mean Platelet Volume 10.3 fL (9.5-13.5); Monocytes Absolute Auto 1.1 10^3/uL (0.3-0.8); Monocytes Percent Auto 15.4 % (1.7-12.0); Neutrophils Absolute Auto 5.4 10^3/uL (1.4-6.5); Platelet Count 254 10^3/uL (150-450); Red Blood Count 3.37 10^6/uL (4.20-5.40); Red Cell Distribution Width 17.3 % (11.0-15.0); White Blood Count 7.4 10^3/uL (4.0-11.0)
[2022-09-04 05:30] LABS: Alanine Aminotransferase 29 U/L (14-59); Albumin Globulin Ratio 0.5; Albumin Level 2.2 g/dL (3.4-5.0); Alkaline Phosphatase 167 U/L (46-116); Anion Gap 0.8; Aspartate Amino Transferase 21 U/L (15-37); BUN Creatinine Ratio 13.6; Bilirubin Total 0.4 mg/dL (0.2-1.0); Calcium 8.8 mg/dL (8.5-10.1); Carbon Dioxide 42.3 mmol/L (21.0-32.0); Chloride 103 mmol/L (98-107); Estimated GFR (African America >60 (>=60); Estimated GFR (Non-African Ame >60 (>=60); Globulin 4.1 g/dL; Glucose 102 mg/dL (74-106); Potassium 4.1 mmol/L (3.5-5.1); Sodium 142 mmol/L (136-145); Total Protein 6.3 g/dL (6.4-8.2)
[2022-09-04 07:38] LABS: Glucometer 107 mg/dL (74-106)
[2022-09-04] MEDS: BACLOFEN 10 MG TABLET 20 MG PO (08:46)
[2022-09-04] MEDS: CITALOPRAM HYDROBROMIDE 20 MG TABLET 40 MG PO (08:46)
[2022-09-04] MEDS: ENOXAPARIN SODIUM 60 MG/0.6 ML SYRINGE SUBQ ×2 (08:46→20:55)
[2022-09-04] MEDS: OXYBUTYNIN chloride 5 MG TABLET PO (08:47)
[2022-09-04] MEDS: PREDNISONE 5 MG TABLET PO (08:47)
--- NOTE | 2022-09-04 11:22 | SWNOTE1 ---
KIRSTIN e-mailing with the business support from [facility] and they wanted some questions answered by pt in regards to her savings, houses, group home? KIRSTIN went in to ask questions to pt and e-mailed back to business office.
--- NOTE | 2022-09-04 11:24 | SWNOTE1 ---
Prior to talking to pt about her funds, [facility] did express they cannot just let pt leave on day 21 if she is not stable for discharge and therefore that is why they are inquiring about her funds.
[2022-09-04 11:45] LABS: Glucometer 103 mg/dL (74-106)
[2022-09-04] MEDS: CEFTRIAXONE 2,000 MG in 0.9 % SODIUM CHLORIDE 100 ML 200 MG IV (11:51)
--- NOTE | 2022-09-04 12:02 | PT.DAILY ---
Physical Therapy Daily Note PT Daily Note/Assess Start: 09/02/22 13:45 Freq: Status: Active Protocol: Document 09/04/22 09:41 DES (Rec: 09/04/22 12:01 DES [id number]) Physical Therapy Daily Note/Assessment Time In/Time Out Time In 09:41 Time Out 10:00 Subjective Subjective Pt. in bed upon arrival. OT also in with pt. at time of Rx . Therapeutic Exercise Time Therapeutic Exercise Minutes (minutes) 10 Therapeutic Exercise Units 1 Therapeutic Exercise Treatment Therapeutic Exercise Treatment Pt. instructed in jerzy LE ther ex. P/AA/A completed for jerzy LE x 10 reps. Active with MRE applied for DF and PF. AA/P knee bends and log rolling of jerzy LE. Active GS, QS, ADD squeeze all completed in supine. Therapeutic Activity Time Therapeutic Activity Minutes (minutes) 8 Therapeutic Activity Units 0 Therapeutic Activity Treatment Therapeutic Activity Comments Long sitting x 15 sec and then 25 secs with MAX A x 2 with PT and OT. Pt. deep breathing while sitting upright but request to rest fairly quickly . Total Physical Therapy Time Total Therapy Minutes 18 Total Physical Therapy Units 1 Summary Daily Note Summary Pt. remains Max A x 2 with long sitting this date. Unable to help pull herself up on L side due to IV in place. Very short tolerance to long sitting this date.
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
[2022-09-04] MEDS: ACETAMINOPHEN 500 MG TABLET 1000 MG PO ×2 (12:40→18:29)
--- NOTE | 2022-09-04 12:50 | CM.NOTE ---
Rounds made with Dr. Woo. Continue to work with P.T. No plan for discharge today.
--- NOTE | 2022-09-04 13:03 | SWNOTE1 ---
Business office from [facility] called and left pt message. Pt informed of this information and pt and will call [place] back.
--- NOTE | 2022-09-04 13:30 | SWNOTE1 ---
SW spoke with pt and and they have spoken to Milka at [facility] and they did agree on the co-payment amount of $7,500. KIRSTIN reached out to Umu at [facility] to see if they are going to start precert.
--- NOTE | 2022-09-04 15:32 | SWNOTE1 ---
SW received call back from [facility] and they are not able to accept. [facility] and their [facility] limit [facility], sometimes they can do case by case, but pt has to be more mobile. At this time pt either can go to a facility further [place] around [place] city or go home with home health care and private caregivers. KIRSTIN spoke with pt and her to update them on the situation. They have decided she will return home with Home Health and will look into private caregivers. SW to add on PT and aide to HH. SW sent updates to [facility] and will leave for weekend for nursing to send over dc. SW also spoke to them about transport home, she will need ambulance. SW to let nursing know. SW updated doctor as well.
[2022-09-04 17:17] LABS: Glucometer 107 mg/dL (74-106)
[2022-09-04] MEDS: PROCHLORPERAZINE 10 MG/2 ML VIAL IV (20:56)
[2022-09-04 21:05] LABS: Glucometer 142 mg/dL (74-106)
--- NOTE | 2022-09-04 22:39 | RESP.RT ---
Placed pt on BIPAP for the night 06/08 Fi02 40%
[2022-09-05] MEDS: ALPRAZOLAM 0.5 MG TABLET PO ×3 (00:57→15:59)
[2022-09-05] MEDS: ACETAMINOPHEN 500 MG TABLET 1000 MG PO ×2 (00:57→12:44)
[2022-09-05 04:04] VITALS: PULSE 82; RESP 18; O2SAT 97
[2022-09-05] MEDS: IPRATROPIUM/ALBUTEROL SULFATE 3 ML AMPUL.NEB IH ×2 (04:04→10:50)
[2022-09-05 04:05] VITALS: PULSE 82; RESP 14; O2SAT 97
[2022-09-05 05:03] LABS: Basophils Percent Auto 0.3 % (0.2-2.0); Eosinophils Absolute Auto 0.2 10^3/uL (0.0-0.7); Eosinophils Percent Auto 3.1 % (0.9-7.0); Hematocrit 27.7 % (36.0-48.0); Hemoglobin 7.8 g/dL (12.0-16.0); Immature Granulocytes Abs Auto 0.11 10^3/uL (0.00-0.03); Immature Granulocytes Pct Auto 1.8 % (0.0-0.5); Lymphocytes Absolute Auto 0.7 10^3/uL (1.2-3.8); Lymphocytes Percent Auto 11.9 % (20.5-60.0); Mean Corpuscular HGB Conc 28.2 g/dL (29.9-35.2); Mean Corpuscular Hemoglobin 24.8 pg (26.7-34.0); Mean Corpuscular Volume 87.9 fL (81.0-99.0); Mean Platelet Volume 10.1 fL (9.5-13.5); Monocytes Absolute Auto 0.8 10^3/uL (0.3-0.8); Neutrophils Absolute Auto 4.4 10^3/uL (1.4-6.5); Neutrophils Percent Auto 69.9 % (43.0-75.0); Platelet Count 260 10^3/uL (150-450); Red Blood Count 3.15 10^6/uL (4.20-5.40); White Blood Count 6.2 10^3/uL (4.0-11.0)
[2022-09-05 05:34] VITALS: BP 128/81; PULSE 87; RESP 14; TEMP 36.6; O2SAT 97
[2022-09-05 08:02] LABS: Glucometer 101 mg/dL (74-106)
[2022-09-05] MEDS: CITALOPRAM HYDROBROMIDE 20 MG TABLET 40 MG PO (08:48)
[2022-09-05] MEDS: OXYBUTYNIN chloride 5 MG TABLET PO (08:48)
[2022-09-05] MEDS: BACLOFEN 10 MG TABLET 20 MG PO (08:48)
[2022-09-05] MEDS: PREDNISONE 5 MG TABLET PO (08:48)
[2022-09-05] MEDS: ENOXAPARIN SODIUM 40 MG/0.4 ML SYRINGE SUBQ (08:48)
--- NOTE | 2022-09-05 10:44 | PM.DS1 ---
DS: Providers Provider Date of admission: 08/30/22 19:35 Primary care physician: Juliana Danielle MD Admitting clinician: Shaikh Amna Consults: 08/31/22 09:51 Occupational Therapy Eval and Treat Routine Physical Therapy Eval and Treat Routine 08/31/22 11:06 Consult to General Surgeon Routine Consulting Provider: Félix Walsh 09/01/22 11:16 Physical Therapy Eval and Treat Routine Attending physician on discharge: Addie Lake DS: Diagnosis Discharge Diagnosis (1) Sepsis: Assessment and plan: Step Aglactiae in blood, Group B strep. Sensitive to Rocephin. Repeat blood cx drawn on 09/02/22. Day #7 of IV abx. Will need to be treated for 14 days total. sepsis has resolved at time of discharge. Given allergy to PCN, based on cultures and sensitivities will place on Levaquin 500mg daily x 7 days at home. ECHO negative for valvular vegetation Qualifiers: Sepsis acute organ dysfunction status: without acute organ dysfunction Sepsis type: Streptococcus group B Qualified Code(s): A40.1 - Sepsis due to streptococcus, group B (2) Gram-positive bacteremia: Assessment and plan: see #1 (3) Cellulitis: Onset Date: ~08/2022 Assessment and plan: see #1 From chronic lymphedema, skin break down. Wound care with home health at discharge Qualifiers: Site of cellulitis: extremity Site of cellulitis of extremity: lower extremity Laterality: unspecified laterality Qualified Code(s): L03.119 - Cellulitis of unspecified part of limb (4) Lymphedema associated with obesity: Assessment and plan: encouraged use of home pedal pumps (5) COPD (chronic obstructive pulmonary disease): Assessment and plan: BIPAP at night time, on 3 L continuous oxygen already at home. Qualifiers: COPD type: unspecified COPD Qualified Code(s): J44.9 - Chronic obstructive pulmonary disease, unspecified (6) Chronic respiratory failure requiring use of nocturnal bilevel positive airway pressure (BPAP) by mask: (7) Acute and chronic respiratory failure with hypoxia: (8) Anemia: Assessment and plan: Discharge hemoglobin was 7.8, iron levels low, start daily iron supplement and this was sent to pharmacy. recheck cbc and iron level in 1 week by H/H or PCP Qualifiers: Anemia type: unspecified type Qualified Code(s): D64.9 - Anemia, unspecified (9) Chronic pain: Assessment and plan: continue home medications at discharge DS: Summary Time Spent with Patient Time attestation: Total time spent providing and/or coordinating discharge services: Time spent: less than 30 minutes Specific discharge activities: up to bedside commode, has home bariatric bed, home with home health and wound care; Patient could not afford inpatient rehab services. continue on continuous oxygen. Exam Narrative Exam Narrative: General: Patient is alert, and oriented to person, place and time with normal affect, morbid obesity and appears to not move much at baseline due to her obesity/ sedentary lifestyle Skin: bilateral lymphedema with blistering, some erythema and seeping of blisters Head: atraumatic, acephalic Eyes: PERRLA, no nystagmus present, conjunctiva clear, no scleral icterus Ears: normal gross auditory acuity Nose: symmetric, no discharge, no maxillary or frontal sinus tenderness Heart: Normal rate and rhythm, no murmurs/rubs/gallops Lungs: no audible wheezes, crackles and normal breath sounds all lung gallardo Abdomen: Normal audible bowel sounds, no distension, No palpable masses, no organomegaly, no rebound/guarding/ or rigidity, central obesity Musculoskeletal: swelling bilateral lower extremities Vascular: Normal carotid, radial, femoral, posterior tibial, and dorsalis pedis pulses Lymph: no supraclavicular, axillary, or anterior/posterior cervical adenopathy Neuro: CN II-X grossly intact, normal sensation upper and lower extremities Constitutional Vital Signs - 24 hr 09/04/22 11:40 09/04/22 11:55 09/04/22 11:55 Temperature Pulse Rate 86 Respiratory Rate 18 Blood Pressure Blood Pressure [Left Arm] Pulse Oximetry 94 L Oxygen Delivery Method Nasal Cannula Oxygen Delivery Flow Rate 3 Fraction of Inspired Oxygen 09/04/22 11:32 09/04/22 13:01 09/04/22 16:32 Temperature Pulse Rate 89 86 Respiratory Rate 13 Blood Pressure 151/74 H Blood Pressure [Left Arm] Pulse Oximetry 95 95 95 Oxygen Delivery Method Nasal Cannula Oxygen Delivery Flow Rate 2 Fraction of Inspired Oxygen 09/04/22 21:08 09/04/22 22:27 09/04/22 22:38 Temperature 98.6 F Pulse Rate 95 H 88 Respiratory Rate 20 16 Blood Pressure Blood Pressure [Left Arm] 101/57 L Pulse Oximetry 94 L 95 95 Oxygen Delivery Method Nasal Cannula Nasal Cannula Nasal Cannula Oxygen Delivery Flow Rate 3 3 3 Fraction of Inspired Oxygen 09/04/22 22:40 09/04/22 22:44 09/05/22 04:05 Temperature Pulse Rate 91 H 91 H 82 Respiratory Rate 15 Blood Pressure Blood Pressure [Left Arm] Pulse Oximetry 97 97 97 Oxygen Delivery Method BIPAP Oxygen Delivery Flow Rate Fraction of Inspired Oxygen 40 40 40 09/05/22 04:04 09/05/22 05:34 Temperature 97.9 F Pulse Rate 82 87 Respiratory Rate 18 14 Blood Pressure Blood Pressure [Left Arm] 128/81 H Pulse Oximetry 97 97 Oxygen Delivery Method BIPAP BIPAP Oxygen Delivery Flow Rate 7.4 Fraction of Inspired Oxygen 40 DS: Data Data Completed and Pending Labs on day of discharge: Labs from last 24 hours 09/05/22 09/05/22 09/04/22 08:00 04:19 21:05 WBC 6.2 RBC 3.15 L Hgb 7.8 L Hct 27.7 L MCV 87.9 MCH 24.8 L MCHC 28.2 L RDW 18.0 H Plt Count 260 MPV 10.1 Neut % (Auto) 69.9 Lymph % (Auto) 11.9 L [place] % (Auto) 13.0 H Eos % (Auto) 3.1 Baso % (Auto) 0.3 Neut # (Auto) 4.4 Lymph # (Auto) 0.7 L [place] # (Auto) 0.8 Eos # (Auto) 0.2 Baso # (Auto) 0.0 Abs Immat Gran (auto) 0.11 H Imm/Tot Granulo (auto) 1.8 H POC Glucose 101 142 H 09/04/22 09/04/22 17:05 11:44 WBC RBC Hgb Hct MCV MCH MCHC RDW Plt Count MPV Neut % (Auto) Lymph % (Auto) [place] % (Auto) Eos % (Auto) Baso % (Auto) Neut # (Auto) Lymph # (Auto) [place] # (Auto) Eos # (Auto) Baso # (Auto) Abs Immat Gran (auto) Imm/Tot Granulo (auto) POC Glucose 107 H 103 Preliminary micro results at discharge 09/02/22 10:10 - Preliminary Blood - Other NO GROWTH AT 36-48 HOURS. FINAL TO FOLLOW. 09/02/22 10:03 - Preliminary Blood - Other NO GROWTH AT 36-48 HOURS. FINAL TO FOLLOW. Discharge Plan Discharge Disposition: Home Health Service Condition: Fair Discharge Medications: New ondansetron 4 mg tablet,disintegrating 4 mg PO Q8H PRN (Reason: nausea and vomiting) 4 Days Qty: 12 0RF ferrous sulfate [Iron (ferrous sulfate)] 325 mg (65 mg iron) tablet 325 mg PO DAILY 30 Days Qty: 30 0RF levofloxacin 500 mg tablet 500 mg PO DAILY 7 Days Qty: 7 0RF Continued albuterol sulfate 2.5 mg /3 mL (0.083 %) solution for nebulization 2.5 mg continuous nebulization Q6H PRN (Reason: shortness of breath or wheezing) baclofen 20 mg tablet 20 mg PO DAILY Breztri Aerosphere 160-9-4.8 mcg/actuation HFA aerosol inhaler 2 inh INHALATION DAILY citalopram 40 mg tablet 40 mg PO DAILY hydrocodone-acetaminophen 5-325 mg tablet 1 tab PO Q6H PRN (Reason: pain) oxybutynin chloride 5 mg tablet 5 mg PO DAILY prednisone 5 mg tablet 5 mg PO DAILY alprazolam [Xanax] 0.5 mg tablet 0.5 mg PO QID PRN (Reason: anxiety) Activity: resume usual activities as tolerated and wear oxygen at all times Activity Detail: encouraged use of home lymphedema leg pumps Diet: 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 Forms: Portal Instructions Follow Up Appointments: will need recheck CBC, iron level in [address] Danielle
[2022-09-05 10:54] VITALS: PULSE 86; RESP 18; O2SAT 95
[2022-09-05] MEDS: PROCHLORPERAZINE 10 MG/2 ML VIAL IV (12:44)
--- NOTE | 2022-09-08 15:46 | CM.DCFOLLOWU ---
Person spoke with:patient How are you feeling? alright How is your pain? general pain that is normal for patient Did you understand your discharge instructions? yes Do you have any questions about your discharge instructions? no Were you given any prescriptions at discharge? yes Were you able to get your prescriptions filled? yes Do you understand how to take your medications as ordered? yes Do you have any questions about your follow up appointment and do you plan to keep your follow up appointment? no questions, attempted to call Dr. Danielle today, no answer, but will try again tomorrow Is there anything else that you would like to discuss? patient did ask about how long her horner should stay in, advised to ask her PCP at follow up and also have [facility] monitor horner Questions/Comments/Concerns/Other:
== END 2022-09-05 16:38 | disposition home health service (06) | DRG 871 ==
LOC: ER 19:25 → ICU 19:38 → MS 09-04 13:26
PROVIDERS: Emergency Medicine; Internal Medicine; Admitting Provider Family Medicine; Emergency Provider Emergency Medicine; PCP Family Medicine; Visit Provider Internal Medicine
DX: A40.1 Sepsis due to streptococcus, group B (principal); J96.21 Acute and chronic respiratory failure with hypoxia; L03.116 Cellulitis of left lower limb; L03.115 Cellulitis of right lower limb; N39.0 Urinary tract infection, site not specified; Z68.45 Body mass index [BMI] 70 or greater, adult; E66.01 Morbid (severe) obesity due to excess calories; G47.33 Obstructive sleep apnea (adult) (pediatric); J44.9 Chronic obstructive pulmonary disease, unspecified; I89.0 Lymphedema, not elsewhere classified; G89.29 Other chronic pain; D64.9 Anemia, unspecified; I95.9 Hypotension, unspecified; R41.0 Disorientation, unspecified; R60.9 Edema, unspecified; Z99.81 Dependence on supplemental oxygen; Z99.89 Dependence on other enabling machines and devices; Z79.52 Long term (current) use of systemic steroids; Z79.51 Long term (current) use of inhaled steroids; Z79.899 Other long term (current) drug therapy; Z88.0 Allergy status to penicillin; Z91.199 Patient's noncompliance with other medical treatment and regimen due to unspecified reason
CPT/HCPCS: 36415; 36430; 71045; 80053; 81003; 82306; 82607; 82728; 82746; 83036; 83540; 83550; 83605; 83735; 83880; 85007; 85025; 86140; 86850; 86900; 86901; 87040; 87150; 87186; 93005; 93306; 94640; 94660; 94761; 94762; 96365; 96366; 96367; 96368; 96372; 96375; 96376; 97110; 97162; 97165; 97530; 99285; J2020; J3370; P9016

== ENCOUNTER 2022-09-15 13:23 | Outpatient (REF) | payer MEDICARE, SELFPAY ==
[2022-09-15 14:11] LABS: Basophils Percent Auto 0.3 % (0.2-2.0); Eosinophils Absolute Auto 0.2 10^3/uL (0.0-0.7); Eosinophils Percent Auto 2.8 % (0.9-7.0); Hematocrit 32.1 % (36.0-48.0); Immature Granulocytes Abs Auto 0.04 10^3/uL (0.00-0.03); Immature Granulocytes Pct Auto 0.6 % (0.0-0.5); Lymphocytes Absolute Auto 0.9 10^3/uL (1.2-3.8); Lymphocytes Percent Auto 12.6 % (20.5-60.0); Mean Corpuscular Hemoglobin 24.7 pg (26.7-34.0); Mean Corpuscular Volume 87.9 fL (81.0-99.0); Monocytes Absolute Auto 0.7 10^3/uL (0.3-0.8); Monocytes Percent Auto 9.8 % (1.7-12.0); Neutrophils Absolute Auto 5.1 10^3/uL (1.4-6.5); Neutrophils Percent Auto 73.9 % (43.0-75.0); Platelet Count 360 10^3/uL (150-450); Red Blood Count 3.65 10^6/uL (4.20-5.40); Red Cell Distribution Width 18.5 % (11.0-15.0); White Blood Count 6.8 10^3/uL (4.0-11.0)
== END 2022-09-15 13:24 | disposition home or self-care (01) ==
LOC: LAB 13:23
PROVIDERS: PCP Family Medicine; Visit Provider Family Medicine
DX: D64.9 Anemia, unspecified (principal)
CPT/HCPCS: 36415; 83540; 85025

== ENCOUNTER 2022-10-27 14:04 | Outpatient (REF) | payer MEDICARE, SELFPAY ==
[2022-10-27 14:25] LABS: Bilirubin Urine NEGATIVE (NEGATIVE); Blood Urine NEGATIVE (NEGATIVE); Clarity Urine CLEAR (CLEAR); Color Urine LT. YELLOW (YELLOW); Glucose Urine UA NEGATIVE (NEGATIVE); Ketones Urine NEGATIVE (NEGATIVE); Leukocyte Esterase Urine LARGE (NEGATIVE); Nitrite Urine NEGATIVE (NEGATIVE); Protein Urine NEGATIVE (NEG/TRACE); Urobilinogen Urine 0.2 EU/dL (0.2-1.0)
== END 2022-10-27 14:05 | disposition home or self-care (01) ==
LOC: LAB 14:04
PROVIDERS: PCP Family Medicine; Visit Provider Family Medicine
DX: R30.0 Dysuria (principal)
CPT/HCPCS: 81003; 87086; 87150; 87186

== ENCOUNTER 2023-08-02 00:35 | Emergency (ER) | payer MEDICARE, SELFPAY ==
[2023-08-02 00:39] VITALS: BP 123/76; PULSE 96; TEMP 36.9; O2SAT 93; BMI 84.1
--- NOTE | 2023-08-02 01:25 | ED.DENTAL1 ---
HPI - Dental/Oral General Chief complaint: Dental/Oral Stated complaint: dental pain Time Seen by Provider: 08/02/23 01:20 Source: patient Mode of arrival: ambulance Limitations: no limitations History of Present Illness HPI Narrative: patient presents complaining of dental pain for 4 days. Worsening pain. No problem swallowing. Baseline dyspnea. Concerned she has an infection and did not want to wait to see the dentist Related Data Home Medications ?Medication ?Instructions ?Recorded ?Confirmed albuterol sulfate 2.5 mg/3 mL 2.5 mg continuous nebulization Q6H 08/30/22 08/02/23 (0.083 %) solution for nebulization PRN shortness of breath or wheezing baclofen 20 mg tablet 20 mg PO Q12H 08/30/22 08/02/23 budesonide 160 mcg-glycopyr 9 2 inh inhalation DAILY 08/30/22 08/02/23 mcg-formot 4.8 mcg/actuation HFA inhaler (Athenixztri Waffl.comphere) citalopram 40 mg tablet 40 mg PO DAILY 08/30/22 08/02/23 hydrocodone 5 mg-acetaminophen 325 1 tab PO Q6H PRN pain 08/30/22 08/02/23 mg tablet oxybutynin chloride 5 mg tablet 5 mg PO DAILY 08/30/22 08/02/23 prednisone 5 mg tablet 5 mg PO Q12H 08/30/22 08/02/23 alprazolam 0.5 mg tablet (Xanax) 0.5 mg PO QID PRN anxiety 09/01/22 08/02/23 furosemide 20 mg tablet 20 mg PO DAILY 08/02/23 08/02/23 Previous Rx's ?Medication ?Instructions ?Recorded ferrous sulfate 325 mg (65 mg 325 mg PO DAILY iron def anemia 30 09/05/22 iron) tablet (Iron (ferrous days #30 tabs sulfate)) levofloxacin 500 mg tablet 500 mg PO DAILY bacteremia 7 days 09/05/22 #7 tabs ondansetron 4 mg disintegrating 4 mg PO Q8H PRN nausea and 09/05/22 tablet vomiting 4 days #12 tabs Allergies Allergy/AdvReac Type Severity Reaction Status Date / Time Penicillins Allergy Severe Verified 08/02/23 00:46 Review of Systems ROS Status of ROS 10 or more systems reviewed and unremarkable except as noted in history and below [facility] Medical History (Updated 08/02/23 @ 01:30 by Ramin Bone MD) Chronic respiratory failure requiring use of nocturnal bilevel positive airway pressure (BPAP) by mask ?J96.10 - Chronic respiratory failure, unspecified whether with hypoxia or hypercapnia (ICD-10) ?Z99.89 - Dependence on other enabling machines and devices (ICD-10) On home O2 ?Z99.81 - Dependence on supplemental oxygen (ICD-10) Edema ?R60.9 - Edema, unspecified (ICD-10) Lymphedema ?I89.0 - Lymphedema, not elsewhere classified (ICD-10) Obesity ?E66.9 - Obesity, unspecified (ICD-10) COPD (chronic obstructive pulmonary disease) ?J44.9 - Chronic obstructive pulmonary disease, unspecified (ICD-10) Social History Within the past year, how often did you have a drink containing alcohol: never Score interpretation: A score less than 3 is consistent with normal alcohol consumption. Smoking status: Never smoker Second hand tobacco smoke exposure: No Non-prescribed substance use: denies use Known occupational exposures/hazards: No Are you now , , , , never or living with a partner: In a typical week, how many times do you talk on the telephone with family, friends, or neighbors: 3 or more times per week How often do you get together with friends or relatives: 3 or more times per week How often do you attend scientologist or confucianist services: never Do you belong to any clubs or organizations such as scientologist groups unions, fraternal or athletic groups, or school groups: no Total score: 2 Score interpretation: A score of greater than or equal to 2 indicates the lowest level of social isolation. Little interest or pleasure in doing things: not at all Feeling down, depressed, or hopeless: several days Feel stressed/tense/nervous/anxious/difficulty sleeping: to some extent Due to disability, difficulty making decisions: No Gender Identity: female Exam Constitutional Vital Signs, click to edit/add: Last Vital Signs Temp 98.4 F 08/02/23 00:39 Pulse 96 H 08/02/23 00:39 Resp 20 08/02/23 00:39 BP 123/76 08/02/23 00:39 Pulse Ox 93 L 08/02/23 00:39 O2 Del Method Room Air 08/02/23 00:39 Common normals: no apparent distress, oriented x3 and alert Other: morbidly obese HENMT Teeth and gingiva image: 1. tender dental caries. no obvious swelling but exam limited by patient's size Eye Common normals: PERRL, EOMs intact bilaterally and conjunctivae normal Neck & C-Spine Common normals: full ROM and no lymphadenopathy Respiratory Common normals: normal respiratory effort, no retractions, no use of accessory muscles and clear to auscultation bilaterally Cardio Common normals: regular rate, regular rhythm, S1 normal heart sound and S2 normal heart sound Extremity Common normals: full ROM Neuro Common normals: oriented x3, CN's II-XII intact bilaterally, moves all extremities, no focal motor deficits and no sensory deficits noted Psych Appearance: grossly normal Course Vital Signs Vital signs: Vital Signs Temperature 98.4 F 08/02/23 00:39 Pulse Rate 96 H 08/02/23 00:39 Respiratory Rate 20 08/02/23 00:39 Blood Pressure 123/76 08/02/23 00:39 Pulse Oximetry 93 L 08/02/23 00:39 Oxygen Delivery Method Room Air 08/02/23 00:39 Temperature 98.4 F 08/02/23 00:39 Pulse Rate 96 H 08/02/23 00:39 Respiratory Rate 20 08/02/23 00:39 Blood Pressure 123/76 08/02/23 00:39 Pulse Oximetry 93 L 08/02/23 00:39 Oxygen Delivery Method Room Air 08/02/23 00:39 MDM - Dental/Oral MDM Narrative Medical decision making narrative: patient presents with increasing dental pain worrisome for an early abscess. Has dental caries and tenderness. No definite swelling of her face but exam limited by her size with BMI 84. Treated in the department with clindamycin and Toradol and discharged home with instructions to follow up with her dentist Lab Data Labs: Lab Results 08/02/23 Range/Units 01:36 WBC 9.4 (4.0-11.0) 10^3/uL RBC 3.60 L (4.20-5.40) 10^6/uL Hgb 11.2 L (12.0-16.0) g/dL Hct 38.1 (36.0-48.0) % MCV 105.8 H (81.0-99.0) fL MCH 31.1 (26.7-34.0) pg MCHC 29.4 L (29.9-35.2) g/dL RDW 13.4 (11.0-15.0) % Plt Count 218 (150-450) 10^3/uL MPV 10.6 (9.5-13.5) fL Neut % (Auto) 79.9 H (43.0-75.0) % Lymph % (Auto) 9.2 L (20.5-60.0) % [place] % (Auto) 8.1 (1.7-12.0) % Eos % (Auto) 2.2 (0.9-7.0) % Baso % (Auto) 0.2 (0.2-2.0) % Neut # (Auto) 7.5 H (1.4-6.5) 10^3/uL Lymph # (Auto) 0.9 L (1.2-3.8) 10^3/uL [place] # (Auto) 0.8 (0.3-0.8) 10^3/uL Eos # (Auto) 0.2 (0.0-0.7) 10^3/uL Baso # (Auto) 0.0 (0.0-0.1) 10^3/uL Abs Immat Gran (auto) 0.04 H (0.00-0.03) 10^3/uL Imm/Tot Granulo (auto) 0.4 (0.0-0.5) % Sodium 141 (136-145) mmol/L Potassium 4.0 (3.5-5.1) mmol/L Chloride 100 (98-107) mmol/L Carbon Dioxide 42.8 H (21.0-32.0) mmol/L Anion Gap 2.2 BUN 16.0 (7.0-18.0) mg/dL Creatinine 0.69 (0.55-1.02) mg/dL Est GFR ( Amer) >60 (>=60) Est GFR (Non-Af Amer) >60 (>=60) BUN/Creatinine Ratio 23.2 Glucose 129 H (74-106) mg/dL Calcium 9.7 (8.5-10.1) mg/dL C-Reactive Protein 0.75 H (<=0.50) mg/dL Discharge Plan Discharge Stand Alone Forms: Portal Instructions Chief Complaint: Dental/Oral Clinical Impression: Dental abscess Patient Disposition: Home, Self-Care Prescriptions / Home Meds: No Action albuterol sulfate 2.5 mg /3 mL (0.083 %) solution for nebulization 2.5 mg continuous nebulization Q6H PRN (Reason: shortness of breath or wheezing) baclofen 20 mg tablet 20 mg PO Q12H Breztri Aerosphere 160-9-4.8 mcg/actuation HFA aerosol inhaler 2 inh INHALATION DAILY citalopram 40 mg tablet 40 mg PO DAILY hydrocodone-acetaminophen 5-325 mg tablet 1 tab PO Q6H PRN (Reason: pain) oxybutynin chloride 5 mg tablet 5 mg PO DAILY prednisone 5 mg tablet 5 mg PO Q12H alprazolam [Xanax] 0.5 mg tablet 0.5 mg PO QID PRN (Reason: anxiety) ondansetron 4 mg tablet,disintegrating 4 mg PO Q8H PRN (Reason: nausea and vomiting) 4 Days Qty: 12 0RF ferrous sulfate [Iron (ferrous sulfate)] 325 mg (65 mg iron) tablet 325 mg PO DAILY 30 Days Qty: 30 0RF levofloxacin 500 mg tablet 500 mg PO DAILY 7 Days Qty: 7 0RF furosemide 20 mg tablet 20 mg PO DAILY Print Language: Ghanaian Instructions: Dental Abscess (ED) Additional Instructions: follow up with your dentist this week Referrals: Juliana Danielle MD [Primary Care Provider] - 1 week
[2023-08-02] MEDS: KETOROLAC TROMETHAMINE 60 MG/2 ML VIAL IM (01:39)
[2023-08-02] MEDS: CLINDAMYCIN HCL 150 MG CAPSULE 300 MG PO (01:40)
[2023-08-02 01:44] LABS: Basophils Percent Auto 0.2 % (0.2-2.0); Eosinophils Absolute Auto 0.2 10^3/uL (0.0-0.7); Eosinophils Percent Auto 2.2 % (0.9-7.0); Hematocrit 38.1 % (36.0-48.0); Hemoglobin 11.2 g/dL (12.0-16.0); Immature Granulocytes Abs Auto 0.04 10^3/uL (0.00-0.03); Immature Granulocytes Pct Auto 0.4 % (0.0-0.5); Lymphocytes Absolute Auto 0.9 10^3/uL (1.2-3.8); Lymphocytes Percent Auto 9.2 % (20.5-60.0); Mean Corpuscular HGB Conc 29.4 g/dL (29.9-35.2); Mean Corpuscular Hemoglobin 31.1 pg (26.7-34.0); Mean Corpuscular Volume 105.8 fL (81.0-99.0); Mean Platelet Volume 10.6 fL (9.5-13.5); Monocytes Absolute Auto 0.8 10^3/uL (0.3-0.8); Monocytes Percent Auto 8.1 % (1.7-12.0); Neutrophils Absolute Auto 7.5 10^3/uL (1.4-6.5); Neutrophils Percent Auto 79.9 % (43.0-75.0); Platelet Count 218 10^3/uL (150-450); Red Cell Distribution Width 13.4 % (11.0-15.0); White Blood Count 9.4 10^3/uL (4.0-11.0)
[2023-08-02 01:53] LABS: Anion Gap 2.2; BUN Creatinine Ratio 23.2; C Reactive Protein 0.75 mg/dL (<=0.50); Calcium 9.7 mg/dL (8.5-10.1); Carbon Dioxide 42.8 mmol/L (21.0-32.0); Chloride 100 mmol/L (98-107); Estimated GFR (African America >60 (>=60); Estimated GFR (Non-African Ame >60 (>=60); Glucose 129 mg/dL (74-106); Sodium 141 mmol/L (136-145)
[2023-08-02 02:34] VITALS: BP 112/73; PULSE 93; O2SAT 98
== END 2023-08-02 04:03 | disposition home or self-care (01) ==
PROVIDERS: Emergency Provider Internal Medicine; PCP Family Medicine
DX: K04.7 Periapical abscess without sinus (principal); Z79.899 Other long term (current) drug therapy; Z99.81 Dependence on supplemental oxygen; J44.9 Chronic obstructive pulmonary disease, unspecified; E66.01 Morbid (severe) obesity due to excess calories; Z68.45 Body mass index [BMI] 70 or greater, adult
CPT/HCPCS: 36415; 80048; 85025; 86140; 96372; 99284